=== PATIENT | female | born 1990 | race Caucasian/White ===

== ENCOUNTER 2016-08-04 13:53 | Day surgery (SDC) | payer BC ==
[~2016-08-04] VITALS: Ht 170.2 cm; Wt 117.6 kg
[2016-08-04] VITALS (24 sets, daily range): BP systolic 85–133; BP diastolic 46–91; PULSE 74–97; RESP 12–23; TEMP 97–99.3; O2SAT 91–98; Ht 170.2 cm; Wt 117.6 kg
--- OUTSIDE RECORDS SUMMARY | 2016-08-04 13:58 | XMS REPORT | Summary of Care ---
Author Author Bora Wright Organization Unknown Address [address] [place], [place] [id number] Phone Unavailable Care Team Providers Care Freight Broker Agent Name Role Phone Davin Dixon PP Unavailable Unavailable Unavailable Functional Status Functional Status Health Issues* Name Dates Details Functional status health issues are not documented Status: Cognitive Status Health Issues* Name Dates Details Cognitive status health issues are not documented Status: Problems Name Dates Details Chest pain (786.50, R07.9) Status: Active Memory loss (780.93, R41.3) Status: Active Cervicalgia (723.1, M54.2) Status: Active Cerumen impaction (380.4, H61.20) Status: Active Tonsillar hypertrophy (474.11, J35.1) Status: Active Amenorrhea (626.0, N91.2) Status: Active Pre-procedural examination (V72.84, Z01.818) Status: Active Abnormal liver enzymes (790.5, R74.8) Status: Active 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, 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 Irritable bowel syndrome (564.1, K58.9) Status: Active Abdominal pain, epigastric (789.06, R10.13) Status: Active Lower back pain (724.2, M54.5) Status: Active Rash (782.1, R21) Status: Active Abdominal cramping (789.00, R10.9) Status: Active Rectal bleeding (569.3, K62.5) Status: Active Gastroenteritis (558.9, K52.9) Status: Active Anxiety (300.00, F41.9) Status: Active Acute pharyngitis (462, J02.9) Status: Active Knee pain, right (719.46, M25.561) Status: Active Knee pain (719.46, M25.569) Status: Active Left knee pain (719.46, M25.562) Status: Active 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, 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 Medications Name Dates Details Medication not documented Allergies and Adverse Reactions Name Dates Details Iodine Tincture SWAB Status: Active Sulfa Drugs Status: Active Past Medical History Name Dates Details History of Peptic Ulcer (V12.71) Status: Resolved Procedures Procedure Dates Details History of Appendectomy History of Ovarian Cystectomy History of Cholecystectomy History of Laparos Large Intest Laser Vaporization Endometriotic Tissue History of Duodenoscopy With Biopsy ORTHO KNEE RIGHT Ordered:06-Dec-2014 Immunization Name Dates Details Immunizations not documented Family History Unknown Family Member* Name Dates Details Family history of Diabetes Mellitus (V18.0) Comments: Family History Status: Active Family history of Coronary Arteriosclerosis (V17.49) Comments: Family History Status: Active Family history of Tuberculosis Comments: Family History Status: Active Family history of Alcohol Abuse Comments: Family History Status: Active Family history of Stroke Syndrome (V17.1) Comments: Family History Status: Active Family history of Sick Sinus Syndrome Comments: Family History Status: Active Father* Name Dates Details Family history of cerebrovascular accident (V17.1, Z82.3) Status: Active Social History Name Dates Details Smoking Status* Never smoker Vital Signs Date Test Result Details 06-Dec-2014 09:53 BP Systolic 137 mm[Hg] Status: BP Diastolic 86 mm[Hg] Status: Heart Rate 88 /min Status: Height 67 in Status: 05-Dec-2014 10:11 BP Systolic 124 mm[Hg] Status: BP Diastolic 84 mm[Hg] Status: Temperature 35.9 c Status: Heart Rate 83 /min Status: Weight 248 lb Status: O2 SAT 95 % Status: Results Date Description Value Details 05-Dec-2014 09:50 MRI KNEE RIGHT Comments: Exam Date: 12/05/2014 08: 49Dictation Date: 12/05/2014 09:50 XMR EXT KNEE RIGHT (Better) Plan of Care Planned Observations* Name Dates Details Planned Goals not documented Goal Planned Encounters* Appointment; Provider: Schedule Radiology On 05-Dec-2014 09:00 Instructions * Instructions not documented Encounters Appointment; Davin Vance Encounter Diagnosis: Problem not documented On 03-Jan-2015 08:15 Appointment; Davin Vance Encounter Diagnosis: Problem not documented On 20-Dec-2014 08:45 Appointment; Davin Vance Encounter Diagnosis: Problem not documented On 06-Dec-2014 09:30 Appointment; Davin Dixon Encounter Diagnosis: Problem not documented On 05-Dec-2014 09:45 Appointment; Davin Dixon Encounter Diagnosis: Problem not documented On 26-Nov-2014 15:15 Appointment; Davin Dixon Encounter Diagnosis: Problem not documented On 09:00 Appointment; Davin Dixon Encounter Diagnosis: Problem not documented On 20-Mar-2014 15:00 Appointment; Davin Dixon Encounter Diagnosis: Problem not documented On 27-Feb-2014 10:00 Appointment; Davin Dixon Encounter Diagnosis: Problem not documented On 13-Feb-2014 15:45 Appointment; Davin Dixon Encounter Diagnosis: Problem not documented On 19-Jan-2014 14:00 Appointment; Shayna Mariscal Encounter Diagnosis: Problem not documented On 16-Jan-2014 13:00 Appointment; Eran August Encounter Diagnosis: Problem not documented On 16-Jan-2014 10:00 Appointment; EranAugust Encounter Diagnosis: Problem not documented On 02-Jan-2014 14:45 Appointment; Davin Dixon Encounter Diagnosis: Problem not documented On 30-Oct-2013 13:30 Appointment; Davin Dixon Encounter Diagnosis: Problem not documented On 11-Jul-2013 09:45 Appointment; Davin Dixon Encounter Diagnosis: Problem not documented On 01-May-2013 15:15 Appointment; Arnoldo Contreras Encounter Diagnosis: Problem not documented On 25-Apr-2013 11:00
--- OUTSIDE RECORDS SUMMARY | 2016-08-04 13:58 | XMS REPORT | Summary of Care ---
Author Author Davin Vance M.D. Unknown Address [address] [place], [place] [id number] Phone Unavailable Care Team Providers Care Website Designer Name Role Phone Davin Dixon M.D. Unavailable Unavailable Davin Dixon PP Unavailable Unavailable Unavailable Functional [...] Left knee pain (719.46, M25.562) Status: Active Medications Name Dates Details Hydrocodone-Acetaminophen 5-325 MG Oral Tablet TAKE 1 TABLET EVERY 6 HOURS NEEDED FOR PAIN. Quantity: 30 Davin Dixon M.D.* Started 04-May-2014 Active Allergies and Adverse Reactions Name Dates Details [...] lb Status: O2 SAT 95 % Status: 26-Nov-2014 15:18 BP Systolic 110 mm[Hg] Status: BP Diastolic 80 mm[Hg] Status: Temperature 36.5 c Status: Heart Rate 98 /min Status: Weight 256 lb Status: O2 SAT 97 % Status: Results Date Description Value Details 05-Dec-2014 09:50 MRI KNEE RIGHT Comments: Exam Date: 12/05/2014 08: 49Dictation Date: 12/05/2014 09:50 XMR EXT KNEE RIGHT (Better) Plan of Care Planned Observations* Name Dates Details Planned Goals not documented Goal Planned Encounters* Appointment; Provider: Davin Vance On 03-Jan-2015 08:15 * Appointment; Provider: Schedule Radiology On 05-Dec-2014 09:00 [...] not documented On 16-Jan-2014 13:00 Appointment; Eran Natalie Encounter Diagnosis: Problem not documented On 16-Jan-2014 10:00 Appointment; Natalie Barillas Encounter Diagnosis: Problem not documented On 02-Jan-2014 14:45 Appointment; Davin Dixon Encounter Diagnosis: Problem not documented On 30-Oct-2013 13:30 Appointment; Davin Dixon Encounter Diagnosis: Problem not documented On 11-Jul-2013 09:45 Appointment; Davin Dixon Encounter Diagnosis: Problem not documented On 01-May-2013 15:15 Appointment; Arnoldo Contreras Encounter Diagnosis: Problem not documented On 25-Apr-2013 11:00
--- OUTSIDE RECORDS SUMMARY | 2016-08-04 13:58 | XMS REPORT | Summary of Care ---
Author Author Neel Peters, [facility] Unknown Address [address] [place] [address] Phone Unavailable Care Team Providers Care Wild Life Photographer Name Role Phone Davin Dixon PP Unavailable [...] Acute pharyngitis (462, J02.9) Status: Active Knee pain (719.46, M25.569) Status: Active Left knee pain (719.46, M25.562) Status: Active Chondromalacia of left knee (717.7, M94.262) Status: Active Closed bimalleolar fracture, right, with routine healing, subsequent encounter (V54.16, S82.841D) Status: Active Right knee pain (719.46, M25.561) Status: Active Pre-operative exam (V72.84, Z01.818) Status: Active Knee pain, right (719.46, M25.561) Status: Active 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, 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 Post-op pain (338.18, G89.18) Status: Active Status post arthroscopy of right knee (V45.89, Z98.89) Status: Active History of Appendectomy Status: Resolved Family history of Diabetes Mellitus (V18.0) Status: Active Family history of Alcohol Abuse Status: Active Family history of cerebrovascular accident (V17.1, Z82.3) Status: Active Medications Name Dates Details Medication not documented Allergies and Adverse Reactions Name Dates Details Iodine Tincture SWAB Status: Active Sulfa Drugs Status: Active Past Medical History Name Dates Details History of Muscle discomfort (729.1, M79.1) Status: Resolved History of Peptic Ulcer (V12.71) Status: Resolved Procedures Procedure Dates Details History of Ovarian Cystectomy History of Cholecystectomy History of Laparos Large Intest Laser Vaporization Endometriotic Tissue History of Duodenoscopy With Biopsy History of Appendectomy ORTHO SPINE LUMBAR (5 VIEWS) Ordered:27-Feb-2015 Immunization Name Dates Details Immunizations not documented Family History Unknown Family Member* Name Dates Details Family history of Coronary Arteriosclerosis (V17.49) Comments: Family History Status: Active Family history of Tuberculosis Comments: Family History Status: Active Family history of Stroke Syndrome (V17.1) Comments: Family History Status: Active Family history of Sick Sinus Syndrome Comments: Family History Status: Active Family history of Diabetes Mellitus (V18.0) Comments: Family History Status: Active Family history of Alcohol Abuse Comments: Family History Status: Active Father* Name Dates Details Family history of cerebrovascular accident (V17.1, Z82.3) Status: Active Social History Smoking Status* Unknown if ever smoked Vital Signs Date Test Result Details No Known Vitals to report Results Date Description Value Details Results not documented Plan of Care Planned Observations* Name Dates Details Planned Goals not documented Goal Planned Encounters* Appointment; Provider: Noelle Amanda On 08-Mar-2015 08:00 * Appointment; Provider: Davin Vance On 14-Jan-2015 08:00 * Appointment; Provider: [facility] On 05-Dec-2014 09:00 Instructions * Instructions not documented Encounters Appointment; Harinder Shaikh Encounter Diagnosis: Problem not documented On 01-Mar-2015 09:15 Appointment; Erfain Cantrell Encounter Diagnosis: Problem not documented On 01-Mar-2015 08:30 Appointment; Davin Vance Encounter Diagnosis: Problem not documented On 24-Jan-2015 10:30 Appointment; Efrain Rojo Encounter Diagnosis: Problem not documented On 11-Jan-2015 14:45 Appointment; Davin Vance Encounter Diagnosis: Problem not documented On 10-Jan-2015 08:45 Appointment; Davin Vance Encounter Diagnosis: Problem not documented On 03-Jan-2015 08:15 Appointment; Davin Vance Encounter Diagnosis: Problem not documented On 20-Dec-2014 08:45 Appointment; Davin Vance Encounter Diagnosis: Problem not documented On 06-Dec-2014 09:30 Appointment; Davin Dixon Encounter Diagnosis: Problem not documented On 05-Dec-2014 09:45 Appointment; Davin Dixon Encounter Diagnosis: Problem not documented On 26-Nov-2014 15:15 Appointment; Davin iDxon Encounter Diagnosis: Problem not documented On 09:00 Appointment; Davin Dixon Encounter Diagnosis: Problem not documented On 20-Mar-2014 15:00 Appointment; Davin Dixon Encounter Diagnosis: Problem not documented On 27-Feb-2014 10:00 Appointment; Davin Dixon Encounter Diagnosis: Problem not documented On 13-Feb-2014 15:45 Appointment; Davin Dixon Encounter Diagnosis: Problem not documented On 19-Jan-2014 14:00 Appointment; Shayna Mariscal Encounter Diagnosis: Problem not documented On 16-Jan-2014 13:00 Appointment; EranAugust Encounter Diagnosis: Problem not documented On 16-Jan-2014 10:00 Appointment; Eran August Encounter Diagnosis: Problem not documented On 02-Jan-2014 14:45 Appointment; Davin Dixon Encounter Diagnosis: Problem not documented On 30-Oct-2013 13:30 Appointment; Davin Dixon Encounter Diagnosis: Problem not documented On 11-Jul-2013 09:45 Appointment; Davin Dixon Encounter Diagnosis: Problem not documented On 01-May-2013 15:15 Appointment; Arnoldo Contreras Encounter Diagnosis: Problem not documented On 25-Apr-2013 11:00
--- OUTSIDE RECORDS SUMMARY | 2016-08-04 13:58 | XMS REPORT | Summary of Care ---
Author Author Davin Dixon M.D. Organization Unknown Address [address] [place], [place] [id number] Phone Unavailable Care Team Providers Care Osteologist Name Role Phone Davin Dixon M.D. Unavailable [...] Gastroenteritis (558.9, K52.9) Status: Active Anxiety (300.00, F41.1) Status: Active Acute pharyngitis (462, J02.9) Status: Active Medications Name Dates Details Hydrocodone-Acetaminophen 5-325 MG Oral Tablet TAKE 1 TABLET EVERY 6 HOURS NEEDED FOR PAIN. Quantity: 30 Davin Dixon M.D.* Started 04-May-2014 ActiveAmoxicillin 500 MG Oral Tablet TAKE 1 TABLET 3 TIMES DAILY. * Quantity: 21 Refills: 0 Davin Dixon M.D.* Started Active Allergies and Adverse Reactions Name Dates Details Iodine Tincture SWAB Status: Active Sulfa Drugs Status: Active Past Medical History Name Dates Details History of Peptic Ulcer (V12.71) Status: Resolved Procedures Procedure Dates Details History of Appendectomy History of Ovarian Cystectomy History of Cholecystectomy History of Laparos Large Intest Laser Vaporization Endometriotic Tissue History of Duodenoscopy With Biopsy Procedures not documented Immunization Name Dates Details Immunizations not documented [...] Sinus Syndrome Comments: Family History Status: Active Social History Name Dates Details Smoking Status* Never smoker Vital Signs Date Test Result Details No Known Vitals to report Results Date Description Value Details Results not documented Plan of Care Planned Observations* Name Dates Details Planned Goals not documented Goal Instructions * Instructions not documented Encounters Appointment; Davin Dixon Encounter Diagnosis: Problem not [...] not documented On 01-May-2013 15:15 Appointment; Arnoldo Contrersa Encounter Diagnosis: Problem not documented On 25-Apr-2013 11:00
--- OUTSIDE RECORDS SUMMARY | 2016-08-04 13:58 | XMS REPORT | Summary of Care ---
Author Author Davin Maradiaga M.D. Organization Unknown Address [address], [place] [address] Phone Unavailable Care Team Providers Care Backup Operator Name Role Phone Davin Dixon M.D. 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, 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 History of Appendectomy Status: Resolved Family history of Diabetes Mellitus (V18.0) Status: Active Family history of Alcohol Abuse Status: Active Family history of cerebrovascular accident (V17.1, Z82.3) Status: Active Lower back pain (724.2, M54.5) Status: Active History of drug dependence/abuse (304.63, F19.21) Status: Active Suppressed , with delivery (676.51, O92.5) Status: Active Anxiety (300.00, F41.9) Status: Active Depression (311, F32.9) Status: Active Headache (784.0, R51) Status: Active Left knee pain (719.46, M25.562) Status: Active Iliotibial band tendinitis of left side (728.89, M76.32) Status: Active Migraine without aura, intractable (346.11, G43.019) Status: Active Medications Name Dates Details Multi-Vitamins Oral Tablet TAKE 1 TABLET DAILY. Davin Dixon M.D.* Started 12-Apr-2015 ActiveSertraline HCl - 50 MG Oral Tablet TAKE 1 TABLET DAILY. * Quantity: 30 Refills: 3 Davin Dixon M.D.* Started 12-Apr-2015 ActiveClonazePAM 0.5 MG Oral Tablet TAKE 1 TABLET Bedtime PRN * Quantity: 30 Refills: 0 Davin Dixon M.D.* Started 12-Apr-2015 Active Allergies and Adverse Reactions Name Dates Details Iodine Tincture SWAB Status: Active Sulfa Drugs Status: Active Past Medical History Name Dates Details History of back problems Status: Resolved History of dizziness (V13.89, Z87.898) Status: Resolved History of hearing loss (V12.49, Z86.69) Status: Resolved History of Muscle discomfort (729.1, M79.1) Status: Resolved History of Peptic Ulcer (V12.71) Status: Resolved Procedures Procedure Dates Details History of Ovarian Cystectomy History of Cholecystectomy History of Laparos Large Intest Laser Vaporization Endometriotic Tissue History of Duodenoscopy With Biopsy History of Appendectomy History of Tonsillectomy History of Gallbladder Surgery History of Knee Surgery ORTHO KNEE LEFT Ordered:19-Feb-2016 Immunization Name Dates Details Immunizations not documented [...] of cerebrovascular accident (V17.1, Z82.3) Status: Active Brother* Name Dates Details Family history of suicide (V17.0, Z81.8) Status: Active Social History Name Dates Details Smoking Status* Never smoker Vital Signs Date Test Result Details 28-May-2015 09:55 BP Systolic 124 mm[Hg] Status: BP Diastolic 80 mm[Hg] Status: Heart Rate 66 /min Status: Weight 249 lb Status: Body Mass Index Calculated 39 kg/m2 Status: Body Surface Area Calculated 2.22 m2 Status: 17-May-2015 08:47 BP Systolic 129 mm[Hg] Status: BP Diastolic 86 mm[Hg] Status: Heart Rate 81 /min Status: Respiration Rate 16 /min Status: 14-May-2015 10:31 BP Systolic 122 mm[Hg] Status: BP Diastolic 80 mm[Hg] Status: Temperature 36.1 c Status: Heart Rate 81 /min Status: Weight 248 lb Status: O2 SAT 97 % Status: Body Mass Index Calculated 38.84 kg/m2 Status: Body Surface Area Calculated 2.22 m2 Status: Results Date Description Value Details Results not documented Plan of Care Planned Observations* Name Dates Details Planned Goals not documented Goal Planned Encounters* Appointment; Provider: Davin Maradiaga On 14-Aug-2015 08:30 * Appointment; Provider: Davin Dixon On 12-Aug-2015 10:45 * Appointment; Provider: Davin Vance On 30-May-2015 08:00 * Appointment; Provider: Davin Vance On 14-Jan-2015 08:00 * Appointment; Provider: Schedule Radiology On 05-Dec-2014 09:00 Instructions * Instructions not documented Encounters Appointment; Davin Maradiaga Encounter Diagnosis: Problem not documented On 28-May-2015 10:00 Appointment; Davin Vance Encounter Diagnosis: Problem not documented On 17-May-2015 08:30 Appointment; Davin Dixon Encounter Diagnosis: Problem not documented On 14-May-2015 10:30 Appointment; Davin Dixon Encounter Diagnosis: Problem not documented On 12-Apr-2015 15:00 Appointment; Harinder Shaikh Encounter Diagnosis: Problem not documented On 01-Mar-2015 09:15 Appointment; Efrain Cantrell Encounter Diagnosis: Problem not documented On [...]
--- OUTSIDE RECORDS SUMMARY | 2016-08-04 13:58 | XMS REPORT | Summary of Care ---
Author Author Davin Dixon M.D. Organization Unknown Address [address] [place], [place] [id number] Phone Unavailable Care Team Providers Care Financial Investigator Name Role Phone Davin Dixon M.D. Unavailable [...] Knee pain, right (719.46, M25.561) Status: Active Medications Name Dates Details Hydrocodone-Acetaminophen [...] smoker Vital Signs Date Test Result Details 05-Dec-2014 10:11 BP Systolic 124 mm[Hg] Status: [...] not documented On 16-Jan-2014 10:00 Appointment; Eran Natalie Encounter Diagnosis: Problem not documented On 02-Jan-2014 14:45 Appointment; Davin Dixon Encounter Diagnosis: Problem not documented On 30-Oct-2013 13:30 Appointment; Davin Dixon Encounter Diagnosis: Problem not documented On 11-Jul-2013 09:45 Appointment; Davin Dixon Encounter Diagnosis: Problem not documented On 01-May-2013 15:15 Appointment; Arnoldo Contreras Encounter Diagnosis: Problem not documented On 25-Apr-2013 11:00
--- OUTSIDE RECORDS SUMMARY | 2016-08-04 13:58 | XMS REPORT | Summary of Care ---
Author Author Davin Dixon M.D. Organization Unknown Address [address] [place], [place] [id number] Phone Unavailable Care Team Providers Care Legal Billing Clerk Name Role Phone Davin Dixon M.D. Unavailable [...] J02.9) Status: Active Medications Name Dates Details [place] 5-325 MG Oral Tablet TAKE 1 TABLET [...] smoker Vital Signs Date Test Result Details 09:24 BP Systolic 118 mm[Hg] Status: BP Diastolic 80 mm[Hg] Status: Heart Rate 102 /min Status: Temperature 36.4 c Status: Weight 259 lb Status: O2 SAT 98 % Status: Results Date Description Value Details Results [...] Diagnosis: Problem not documented On 25-Apr-2013 11:00 Appointment; Arnoldo Contreras Encounter Diagnosis: Problem not documented On 08:45 Appointment; Arnoldo Contreras Encounter Diagnosis: Problem not documented On 08:15 Appointment; Davin Dixon Encounter Diagnosis: Problem not documented On 10:30
--- OUTSIDE RECORDS SUMMARY | 2016-08-04 13:58 | XMS REPORT | Summary of Care ---
Author Author Davin Dixon M.D. Organization Unknown Address [address] [place], [place] [id number] Phone Unavailable Care Team Providers Care Area Field Manager Name Role Phone Davin Dixon M.D. Unavailable [...] Status: Active Gastroenteritis (558.9, K52.9) Status: Active Medications Name Dates Details TraMADol HCl - 50 MG Oral Tablet TAKE 1 TABLET EVERY 6 HOURS NEEDED FOR PAIN. Quantity: 40 Davin Dixon M.D.* Started 05-Mar-2014 ActiveAzithromycin 250 MG Oral Tablet TAKE 2 TABLETS ON DAY 1 THEN TAKE 1 TABLET A DAY FOR 4 DAYS. * Quantity: 1 Refills: 0 Davin Dixon M.D.* Started 20-Mar-2014 Active Allergies and Adverse Reactions Name Dates Details Iodine Tincture SWAB Status: Active Sulfa Drugs Status: Active Past Medical History Name Dates Details History of Peptic Ulcer (V12.71) Status: Resolved Procedures Procedure Dates Details History of Appendectomy History of Ovarian Cystectomy History of Cholecystectomy History of Laparos Large Intest Laser Vaporization Endometriotic Tissue History of Duodenoscopy With Biopsy STOOL CULTURE 5015 Ordered:20-Mar-2014 Immunization Name Dates Details Immunizations not documented [...] smoker Vital Signs Date Test Result Details 20-Mar-2014 15:24 BP Systolic 128 mm[Hg] Status: BP Diastolic 78 mm[Hg] Status: Heart Rate 96 /min Status: Temperature 35.5 c Status: O2 SAT 97 % Status: Results Date Description Value Details 20-Mar-2014 15:14 CBC w/ Auto Diff 7150 WBC 10.1 K/uL (Better) Range: 4.5-11.0 RBC 4.95 mil/uL (Better) Range: 3.60-5.00 HGB 14.7 g/dL (Better) Range: 12.0-16.0 HCT 42.5 % (Better) Range: 36.0-48.0 MCV 85.9 fL (Better) Range: 80.0-99.0 MCH 29.6 pg (Better) Range: 27.3-32.5 MCHC 34.5 % (Better) Range: 32.0-36.0 RDW 13.4 % (Better) Range: 11.6-14.8 PLATELETS 302 K/uL (Better) Range: 150-400 MPV 6.8 fL (Better) Range: 6.0-11.0 %NEUTRO 62.9 % (Better) Range: 37.0-80.0 %LYMPHS 27.8 % (Better) Range: 13.0-50.0 %MONO 4.3 % (Better) Range: 0.0-12.0 %EOS 2.8 % (Better) Range: 0.0-7.0 %BASO 0.9 % (Better) Range: 0.0-2.5 %PEDRO 1.3 % (Better) Range: 0.0-5.0 NEUTRO 6.4 K/uL (Better) Range: 2.0-6.9 LYMPHS 2.8 K/uL (Better) Range: 0.6-3.4 MONOS 0.4 K/uL (Better) Range: 0.0-0.9 EOS 0.3 K/uL (Better) Range: 0.0-0.7 BASO 0.1 K/uL (Better) Range: 0.0-0.2 15:32 BASIC METABOLIC PROFILE 1210 SODIUM 139 mmol/L (Better) Range: 133-144 POTASSIUM 3.9 mmol/L (Better) Range: 3.5-5.1 CHLORIDE 102 mmol/L (Better) Range: 98-110 CARBON DIOXIDE 25.8 mmol/L (Better) Range: 23.0-33.0 ANION GAP 11 mmol/L (Better) Range: 6-16 BUN 9 mg/dL (Better) Range: 7-18 CREATININE, SERUM 0.91 mg/dL (Better) Range: 0.43-1.13 EST GFR, >60 ml/min (Better) Range: >60 EST GFR, NON-AFR NAMIBIAN >60 ml/min (Better) Range: >60 Comments: EST GFR is reported in ml/min per 1.73 m2 of body surface area. For -[place], please multiple result by 1.2.----- BUN:CREATININE RATIO 10 (Better) GLUCOSE 102 mg/dL (Above high threshold) Range: 70-100 CALCIUM 8.9 mg/dL (Better) Range: 8.5-10.1 Plan of Care Planned Observations* Name Dates [...] Encounter Diagnosis: Problem not documented On 10:30 Appointment; Davin Dixon Encounter Diagnosis: Problem not documented On 01-Aug-2012 16:15 Appointment; Davin Dixon Encounter Diagnosis: Problem not documented On 20-Jul-2012 13:30 Appointment; Davin Dixon Encounter Diagnosis: Problem not documented On 14-Jun-2012 14:45
--- OUTSIDE RECORDS SUMMARY | 2016-08-04 13:58 | XMS REPORT | Summary of Care ---
Author Author Davin Dixon M.D. Organization Unknown Address [address] [place], [place] [id number] Phone Unavailable Care Team Providers Care Molasses And Caramel Operator Name Role Phone Davin Dixon M.D. [...] ml/min (Better) Range: >60 EST GFR, NON-AFR OMANI >60 ml/min (Better) Range: >60 Comments: EST GFR is reported in ml/min per 1.73 m2 of body surface area. For -[place], please multiple result by 1.2.----- BUN:CREATININE RATIO [...]
--- OUTSIDE RECORDS SUMMARY | 2016-08-04 13:59 | XMS REPORT | Summary of Care ---
Author Author Eran Peters, Natalie J Organization Unknown Address [address], [place] [id number] Phone Unavailable Care Team Providers Care Health Management Consultant Name Role Phone Davin Dixon PP Unavailable Unavailable Unavailable Functional Status Functional Status Health Issues* Name Dates Details Functional status health issues are not documented Status: Cognitive Status Health Issues* Name Dates Details Cognitive status health issues are not documented Status: Problems Name Dates Details Lower back pain (724.2, M54.5) Status: Active Chest pain (786.50, R07.9) Status: Active Memory loss (780.93, R41.3) Status: Active Cervicalgia (723.1, M54.2) Status: Active Cerumen impaction (380.4, H61.20) Status: Active Tonsillar hypertrophy (474.11, J35.1) Status: Active Amenorrhea (626.0, N91.2) Status: Active 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, 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 Abdominal pain, epigastric (789.06, R10.13) Status: Active Pre-procedural examination (V72.84, Z01.818) Status: Active Abnormal liver enzymes (790.5, R74.8) Status: Active Medications Name Dates Details Complete 14-0.4 MG Oral Tablet * Started 01-May-2013 Active Allergies and Adverse Reactions Name Dates Details Iodine Tincture SWAB Status: Active Sulfa Drugs Status: Active Past Medical History Name Dates Details History of Peptic Ulcer (V12.71) Status: Resolved Procedures Procedure Dates Details History of Appendectomy History of Ovarian Cystectomy History of Cholecystectomy History of Laparos Large Intest Laser Vaporization Endometriotic Tissue SERUM TEST 8020 Ordered:02-Jan-2014 ULTRASOUND ABDOMEN COMPLETE Ordered:03-Jan-2014 Immunization Name Dates Details Immunizations not documented [...] smoker Vital Signs Date Test Result Details 02-Jan-2014 15:14 BP Systolic 127 mm[Hg] Status: BP Diastolic 85 mm[Hg] Status: Heart Rate 80 /min Status: Weight 245 lb Status: Results Date Description Value Details 02-Jan-2014 10:09 SERUM TEST 8020 SERUM TEST Negative (Better) Range: Negative Comments: Internal Control: Acceptable----- 16:37 AMYLASE 1250 AMYLASE 75 U/L (Better) Range: 25-115 16:37 C REACTIVE PROTEIN, CRP 2030 C REACTIVE PROTEIN 1.1 mg/dL (Above high threshold) Range: 0.0-0.9 16:37 Comprehensive Metabolic Panel 1212 SODIUM 140 mmol/L (Better) Range: 133-144 POTASSIUM 3.9 mmol/L (Better) Range: 3.5-5.1 CHLORIDE 104 mmol/L (Better) Range: 98-110 CARBON DIOXIDE 30.7 mmol/L (Better) Range: 23.0-33.0 ANION GAP 5 mmol/L (Below low threshold) Range: 6-16 BUN 12 mg/dL (Better) Range: 7-18 CREATININE, SERUM 0.90 mg/dL (Better) Range: 0.43-1.13 BUN:CREATININE RATIO 13 (Better) EST GFR, >60 ml/min (Better) Range: >60 EST GFR, NON-AFR TRINIDADIAN >60 ml/min (Better) Range: >60 Comments: EST GFR is reported in ml/min per 1.73 m2 of body surface area. For -Indonesian, please multiple result by 1.2.----- GLUCOSE 89 mg/dL (Better) Range: 70-100 ALK PHOSPHATASE 132 U/L (Above high threshold) Range: 46-116 Comments: Please Note: New Reference Range effective 2013.----- TOTAL BILIRUBIN 0.30 mg/dL (Better) Range: 0.20-1.00 AST 14 U/L (Better) Range: 8-35 ALT 21 U/L (Better) Range: 12-78 ALBUMIN 4.0 g/dL (Better) Range: 3.4-5.0 TOTAL PROTEIN 7.9 g/dL (Better) Range: 6.4-8.2 A/G RATIO 1.0 units (Better) Range: 1.0-1.8 CALCIUM 9.8 mg/dL (Better) Range: 8.5-10.1 16:37 Lipase 1275 LIPASE 210 U/L (Better) Range: 73-393 16:53 H. Pylori IgG, Ab 2024 H PYLORI ANTIBODY Negative (Better) Range: Negative 06-Jan-2014 13:11 Celiac Disease Comprehensive [id number] Comments: TESTING PERFORMED AT: [BN] [facility], [address] [place] [address], [address], PHONE: [phone], PRESCHOOL TEACHER ASSISTANT: HOWIE ASIF MDTESTING PERFORMED AT: [DA] [facility], [address] [place] [address], [place], [address], PHONE: [phone], PRESCHOOL TEACHER ASSISTANT: KIRIT FUNEZ MD DEAMIDATED GLIADIN ABS, IGA 1 UNITS (Better) Range: 0-19 Comments: NEGATIVE 0 - 19 WEAK POSITIVE 20 - 30 MODERATE TO STRONG POSITIVE >30----- DEAMIDATED GLIADIN ABS, IGG 2 UNITS (Better) Range: 0-19 Comments: NEGATIVE 0 - 19 WEAK POSITIVE 20 - 30 MODERATE TO STRONG POSITIVE >30----- T-TRANSGLUTAMINASE (TTG) IGA <2 U/ML (Better) Range: 0-3 Comments: NEGATIVE 0 - 3 WEAK POSITIVE 4 - 10 POSITIVE >10 TISSUE TRANSGLUTAMINASE (TTG) HAS BEEN IDENTIFIED THE ENDOMYSIAL ANTIGEN. STUDIES HAVE DEMONSTR- ATED THAT ENDOMYSIAL IGA ANTIBODIES HAVE OVER 99% SPECIFICITY FOR GLUTEN SENSITIVE ENTEROPATHY.----- T-TRANSGLUTAMINASE (TTG) IGG 5 U/ML (Better) Range: 0-5 Comments: NEGATIVE 0 - 5 WEAK POSITIVE 6 - 9 POSITIVE >9----- ENDOMYSIAL ANTIBODY IGA NEGATIVE (Better) Range: NEGATIVE IMMUNOGLOBULIN A, QN, SERUM 63 MG/DL (Below low threshold) Range: 91-414 Plan of Care Planned Observations* Name Dates Details Planned Goals not documented Goal Planned Encounters* Appointment; Provider: Natalie Barillas On 16-Jan-2014 10:00 Instructions * Instructions not documented Encounters Appointment; EranAugust Encounter Diagnosis: Problem not documented On 02-Jan-2014 14:45 Appointment; aDvin Dixon Encounter Diagnosis: Problem not documented On [...] Diagnosis: Problem not documented On 14-Jun-2012 14:45 Appointment; Howie Melendez Encounter Diagnosis: Problem not documented On 04-Apr-2012 11:45 Appointment; Howie Melendez Encounter Diagnosis: Problem not documented On 05-Feb-2012 13:45
--- OUTSIDE RECORDS SUMMARY | 2016-08-04 13:59 | XMS REPORT | Referral Summary ---
Author Author [facility] Organization [facility] Address Unknown Phone Unavailable Care Team Providers Care Hvac Manager Name Role Phone No PCP, Pt States Primary Care Physician [phone] Encounter VC Date(s): 03/01/16 - 03/01/16 [facility] [address] [place] [address] Discharge Diagnosis: Wound due to squirrel bite Discharge Disposition: 01-Home or Self Care Attending Physician: Brennan Moreno DO Admitting Physician: Brennan Moreno DO Vital Signs Most recent to 1 oldest [Reference Range]: Temperature Oral 37.1 degC [35.8-37.3 degC] (03/01/16 2:26 PM) Peripheral Pulse 80 bpm Rate [60-100 bpm] (03/01/16 2:26 PM) Respiratory Rate 18 br/min [14-20 br/min] (03/01/16 2:26 PM) Blood Pressure 109/77 mmHg [90-140/60-90 mmHg] (03/01/16 2:26 PM) SpO2 97 % (03/01/16 2:26 PM) Problem List Condition Effective Dates Status Health Status Informant Anxiety(Confirmed) Active patient Depression, Active patient major(Confirmed) Allergies, Adverse Reactions, Alerts Substance Reaction Severity Status sulfa drugs Active Medications Augmentin 875 mg-125 mg oral tablet 1 tabs, Oral, q12hr, X 10 days, # 20 tabs, 0 Refill(s) Start Date: 03/01/16 Stop Date: 03/11/16 Status: Ordered clonazePAM Oral, TID, 0 Refill(s) Start Date: 03/01/16 Status: Ordered Effexor XR Oral, Daily, 0 Refill(s) Start Date: 03/01/16 Status: Ordered hydrOXYzine 0 Refill(s) Start Date: 03/01/16 Status: Ordered traZODone Oral, 0 Refill(s) Start Date: 03/01/16 Status: Ordered Results No data available for this section Immunizations Vaccine Date Refusal Reason tetanus-diphth toxoids (Td) adult/adol 03/01/16 Procedures Procedure Date Related Diagnosis Body Site Appendicectomy Cholecystectomy Colonoscopy Knee joint operation Tonsillectomy Social History Social History Type Response Smoking Status Current every day smoker; Type: Cigars Assessment and Plan No data available for this section
--- OUTSIDE RECORDS SUMMARY | 2016-08-04 13:59 | XMS REPORT | Summary of Care ---
Author Author Davin Dixon M.D. Organization Unknown Address [address] [place], [place] [id number] Phone Unavailable Care Team Providers Care Blanket Binder Name Role Phone Davin Dixon M.D. Unavailable [...] ml/min (Better) Range: >60 EST GFR, NON-AFR BURUNDIAN >60 ml/min (Better) Range: >60 Comments: EST GFR is reported in ml/min per 1.73 m2 of body surface area. For -Grenadian, please multiple result by 1.2.----- BUN:CREATININE RATIO [...] Problem not documented On 08:45 Appointment; Arnoldo Contrreas Encounter Diagnosis: Problem not documented On 08:15 Appointment; Davin Dixon Encounter Diagnosis: Problem not documented On 10:30 Appointment; Davin Dixon Encounter Diagnosis: Problem not documented On 01-Aug-2012 16:15 Appointment; Davin Dixon Encounter Diagnosis: Problem not documented On 20-Jul-2012 13:30 Appointment; Davin Dixon Encounter Diagnosis: Problem not documented On 14-Jun-2012 14:45
--- OUTSIDE RECORDS SUMMARY | 2016-08-04 13:59 | XMS REPORT ---
Author Author Davin Dixon Organization Unknown Address [address] [place], [place] [id number] Phone Care Team Providers Care Calibration Specialist Name Role Phone DavinDestiny PP Unavailable Unavailable Reason for Referral No Reason for Referral was given. History of Present Illness No HPI available. Problems * Normal Routine History And Physical Adult (V70.0); (Active) * Chest Pain Or Discomfort (786.50); (Active) * Lower Back Pain (724.2); (Active) * Cervicalgia (723.1); (Active) * Memory Lapses Or Loss (780.93); (Active) * Gluten Enteropathy (579.0); (Active) Medication * Antipyrine-Benzocaine 54-14 MG/ML Otic Solution; Instill five drops into each ear every 3 hours as needed.; Start Date: 06/14/2012; End Date: ( Active) Allergies and Adverse Reactions * Sulfa Drugs (Active) * Iodine Tincture SWAB (Active) Past Medical History * History of Peptic Ulcer (V12.71); (Resolved) Procedures Procedure Procedure Date Date Completed Status Appendectomy - - Active Ovarian Cystectomy - - Active Cholecystectomy - - Active Laparos Large Intest Laser Vaporization Endometriotic Tissue - - Active Family History * Family history of Diabetes Mellitus (V18.0); (Active) * Family history of Coronary Arteriosclerosis (V17.49); (Active) * Family history of Tuberculosis (Active) * Family history of Alcohol Abuse (Active) * Family history of Stroke Syndrome (V17.1); (Active) * Family history of Sick Sinus Syndrome (Active) Social History * Never A Smoker (Active) * Marital History - Currently (Active) Vital Signs Date Description Test Result 14 Jun 2012 03:10 PM recorded by: Kamille Salazar Height 67 in Weight 222 lb Body Mass Index Calculated 34.84 Body Surface Area Calculated 2.11 BP Systolic 132 mm[Hg] BP Diastolic 80 mm[Hg] Heart Rate 93 /min O2 SAT 97 % Advance Directives * No Advance Directives available. Encounters * Appointment 06/14/2012
--- OUTSIDE RECORDS SUMMARY | 2016-08-04 13:59 | XMS REPORT | Summary of Care ---
Author Author Davin Dixon M.D. Organization Unknown Address [address] [place], [place] [address] Phone Unavailable Care Team Providers Care Paper Counter Name Role Phone Davin Dixon M.D. Unavailable [...] K52.9) Status: Active Medications Name Dates Details Azithromycin 250 MG Oral Tablet TAKE 2 TABLETS ON DAY 1 THEN TAKE 1 TABLET A DAY FOR 4 DAYS. Quantity: 1 Davin Dixon M.D.* Started 20-Mar-2014 ActiveTraMADol HCl - 50 MG Oral Tablet TAKE 1 TABLET EVERY 6 HOURS NEEDED FOR PAIN. * Quantity: 40 Refills: 0 Davin Dixon M.D.* Started 05-Mar-2014 Active Allergies and Adverse Reactions Name Dates [...] ml/min (Better) Range: >60 EST GFR, NON-AFR [place] >60 ml/min (Better) Range: >60 Comments: EST GFR is reported in ml/min per 1.73 m2 of body surface area. For -Chadian, please multiple result by 1.2.----- BUN:CREATININE RATIO [...]
--- OUTSIDE RECORDS SUMMARY | 2016-08-04 13:59 | XMS REPORT ---
Author Author GENERATED, SYSTEM Organization Unknown Address Unknown Phone Unavailable Care Team Providers Care Computer Technology Instructor Name Role Phone MD FRANKIE, [facility] [phone] Reason For Visit Chief Complaint PAINFUL URINATION, ABDOMINAL PAIN Social History Functional Status Vital Signs Results Urinalysis from 06/23/2015 1:30 PM*URINE COLOR DK YELLOW (STRAW/YELL/DK YELL ) *URINE APPEARANCE CLOUDY A (CLEAR ) URINE PH 5.5 (5.0-8.0 ) URINE SPECIFIC GRAVITY >1.030 (<=1.005->=1.030 ) *URINE GLUCOSE NEGATIVE MG/DL (NEGATIVE MG/DL) *URINE BILIRUBIN NEGATIVE (NEGATIVE ) *URINE KETONES NEGATIVE MG/DL (NEGATIVE MG/DL) *URINE BLOOD LARGE A (NEGATIVE ) *URINE PROTEIN 100 MG/DL A (NEGATIVE MG/DL) *URINE UROBILINOGEN 0.2 EU/DL (0.2-1.0 EU/DL) *URINE NITRITES POSITIVE A (NEGATIVE ) *URINE LEUKOCYTES TRACE A (NEGATIVE ) UR NEGATIVE (NEGATIVE ) *MICROSCOPIC EXAM PERFORMED PERFORMED *WBC URINE 10-25 /HPF A (0-5 /HPF) *RBC URINE 25-50 /HPF A (0-1 /HPF) *SQUAMOUS EP. CELLS MODERATE /LPF A (NEG-FEW /LPF) *TRANSITIONAL EP. CELLS FEW /LPF (NEG-FEW /LPF) *MUCOUS THREADS MODERATE /LPF A (NEGATIVE /LPF) *BACTERIA MANY /HPF A (NEGATIVE /HPF) *CALCIUM OXAL. FILIPE. FEW /HPF A (NEGATIVE /HPF) Microbiology from 06/23/2015 1:30 PM* CULTURE URINE (Preliminary Result) Specimen Number: [id number] Sample Collection Date/Time: 06/23/2015 1:30 PM Specimen Source: Urine Clean Catch CULTURE URINE: Gram-negative bacillus >100,000 cfu/ml ID and Susceptibility to follow Problems Encounter Diagnosis No relevant problems exist. Additional Problems * Fall Risk Comment:Problem resolved by Soarian Workflow upon Discharge, Status: Resolved. Encounters Encounter Diagnosis No relevant problems exist. Plan of Care Procedures * Completed Arthroscopy of Knee, Right, by MD BERNARDO LEVI, on 01/14/2015 11: 26 AM * Completed Procedure Code: 23516 Procedure Name: not valued, on 01/14/2015 12: 00 AM Immunizations No immunizations administered or ordered. Hospital Course Hospital Discharge Instructions Allergies, Adverse Reactions, Alerts * Contrast causes Topical Iodine is the problem. * iodine causes Hives. * Sulfa (Sulfonamide Antibiotics) causes Hives. * Latex Allergy has not been assessed. * IV Contrast Allergy has not been assessed. * No Known Food Allergies. Medication Medication reconciliation has not been performed.
--- OUTSIDE RECORDS SUMMARY | 2016-08-04 13:59 | XMS REPORT | Summary of Care ---
Author Davin Ray M.D. 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 Quantity: 45 Davin Vance M.D.* Started 15-Jan-2015 Active Allergies and Adverse Reactions Name Dates [...] smoked Vital Signs Date Test Result Details 11-Jan-2015 14:45 BP Systolic 122 mm[Hg] Status: BP Diastolic 70 mm[Hg] Status: Heart Rate 88 /min Status: Height 67 in Status: Weight 243 lb Status: Body Mass Index Calculated 38.06 kg/m2 Status: Body Surface Area Calculated 2.2 m2 Status: Results Date Description Value Details 10-Jan-2015 15:44 ECG/ EKG Preop Electro CardioGram (Better) 16:08 PROTIME PANEL 7000 PROTIME 12.3 secs (Better) Range: 12.0-14.9 INR 0.92 (Better) 16:10 CBC w/ Auto Diff 7150 Comments: DOS 01/14/15 Dr. Vance PENDING SALE TO [facility] WBC 10.2 K/uL (Better) Range: 4.5-11.0 RBC 5.05 mil/uL (Above high threshold) Range: 3.60-5.00 HGB 14.3 g/dL (Better) Range: 12.0-16.0 HCT 42.6 % (Better) Range: 36.0-48.0 MCV 84.3 fL (Better) Range: 80.0-99.0 MCH 28.4 pg (Better) Range: 27.3-32.5 MCHC 33.6 % (Better) Range: 32.0-36.0 RDW 14.2 % (Better) Range: 11.6-14.8 PLATELETS 311 K/uL (Better) Range: 150-400 MPV 7.2 fL (Better) Range: 6.0-11.0 %NEUTRO 54.8 % (Better) Range: 37.0-80.0 %LYMPHS 36.7 % (Better) Range: 13.0-50.0 %MONO 3.3 % (Better) Range: 0.0-12.0 %EOS 2.8 % (Better) Range: 0.0-7.0 %BASO 0.3 % (Better) Range: 0.0-2.5 %PEDRO 2.2 % (Better) Range: 0.0-5.0 NEUTRO 5.6 K/uL (Better) Range: 2.0-6.9 LYMPHS 3.8 K/uL (Above high threshold) Range: 0.6-3.4 MONOS 0.3 K/uL (Better) Range: 0.0-0.9 EOS 0.3 K/uL (Better) Range: 0.0-0.7 BASO 0.0 K/uL (Better) Range: 0.0-0.2 16:27 Comprehensive Metabolic Panel 1212 SODIUM 141 mmol/L (Better) Range: 133-144 POTASSIUM 3.8 mmol/L (Better) Range: 3.5-5.1 CHLORIDE 104 mmol/L (Better) Range: 98-110 CARBON DIOXIDE 28.1 mmol/L (Better) Range: 23.0-33.0 ANION GAP 9 mmol/L (Better) Range: 6-16 BUN 15 mg/dL (Better) Range: 7-18 CREATININE, SERUM 1.04 mg/dL (Above high threshold) Range: 0.55-1.02 Comments: Please note new reference ranges effective 2014.----- BUN:CREATININE RATIO 14 (Better) EST GFR, >60 ml/min (Better) Range: >60 EST GFR, NON-AFR SAMOAN >60 ml/min (Better) Range: >60 Comments: EST GFR is reported in ml/min per 1.73 m2 of body surface area. For -Cymraes, please multiple result by 1.2.----- GLUCOSE 101 mg/dL (Above high threshold) Range: 70-100 ALK PHOSPHATASE 101 U/L (Better) Range: 46-116 TOTAL BILIRUBIN 0.40 mg/dL (Better) Range: 0.20-1.00 AST 12 U/L (Better) Range: 8-35 ALT 28 U/L (Better) Range: 14-59 Comments: Please note new reference ranges. Effective 06/07/2014.----- ALBUMIN 3.7 g/dL (Better) Range: 3.4-5.0 TOTAL PROTEIN 6.8 g/dL (Better) Range: 6.4-8.2 A/G RATIO 1.2 units (Better) Range: 1.0-1.8 CALCIUM 8.8 mg/dL (Better) Range: 8.5-10.1 16:49 Urinalysis, Reflex to Microscopic or Culture PRN 8005 pH 6.0 (Better) Range: 5.0-7.5 SP GRAVITY 1.030 (Better) Range: 1.010-1.030 APPEARANCE Clear (Better) Range: Clear COLOR Yellow (Better) Range: Straw-Yellow PROTEIN Negative mg/dL (Better) Range: Negative-Trace GLUCOSE Negative mg/dL (Better) Range: Negative KETONE Negative mg/dL (Better) Range: Negative BILIRUB Negative (Better) Range: Negative BLOOD Moderate (Abnormal) Range: Negative UROBIL 0.2 EU/dL (Better) Range: 0.2-1.0 NITRITE Negative (Better) Range: Negative LEUK Negative (Better) Range: Negative 16:49 Urine Microscopic UMIC WBC 0-2 /HPF (Better) Range: 0-5 RBC 0-2 /HPF (Better) Range: 0-2 EPITH 0-2 /HPF (Better) Range: 0-10 U TRANSEPI 0-2 /HPF (Better) Range: 0-2 17:27 XRay CHEST-PA & LAT Comments: Exam Date: 01/10/2015 16: 06Dictation Date: 01/10/2015 17:27 X CHEST PA & LAT (Better) Plan of Care Planned Observations* Name Dates Details Planned Goals not documented Goal Planned Encounters* Appointment; Provider: Davin Vance On 22-Jan-2015 09:15 * Appointment; Provider: Davin Vance On 14-Jan-2015 08:00 * Appointment; Provider: Schedule Radiology On 05-Dec-2014 09:00 Instructions * Instructions not documented Encounters Appointment; Efrain Rojo Encounter Diagnosis: Problem not documented On 11-Jan-2015 14:45 Appointment; Davin Vance Encounter Diagnosis: Problem not documented On 10-Jan-2015 08:45 Appointment; Davin Vance Encounter Diagnosis: Problem not documented On 03-Jan-2015 08:15 Appointment; Davin Vance Encounter Diagnosis: Problem not documented On 20-Dec-2014 08:45 Appointment; Davin Vance Diagnosis: Problem not documented On 06-Dec-2014 09:30 [...] Problem not documented On 16-Jan-2014 13:00 Appointment; Natalie Barillas Encounter Diagnosis: Problem not documented On 16-Jan-2014 [...]
--- OUTSIDE RECORDS SUMMARY | 2016-08-04 13:59 | XMS REPORT | Summary of Care ---
Author Author Davin Dixon M.D. Organization Unknown Address [address] [place], [place] [address] Phone Unavailable Care Team Providers Care Cryogenics Engineer Name Role Phone Davin Dixon M.D. Unavailable [...] Irritable bowel syndrome (564.1, K58.9) Status: Active Rash (782.1, R21) Status: Active [...] without aura, intractable (346.11, G43.019) Status: Active Left ankle pain (719.47, M25.572) Status: Active Left ankle sprain (845.00, S93.402A) Status: Active Encounter for test (V72.40, Z32.00) Status: Active Abdominal pain, epigastric (789.06, R10.13) Status: Active Medications Name Dates Details Multi-Vitamins Oral Tablet TAKE 1 TABLET DAILY. Davin Dixon M.D.* Started 12-Apr-2015 ActiveSertraline HCl - 50 MG Oral Tablet TAKE 1 TABLET DAILY. * Quantity: 30 Refills: 3 Davin Dixon M.D.* Started 12-Apr-2015 ActiveClonazePAM 0.5 MG Oral Tablet TAKE 1 TABLET TWICE DAILY. * Quantity: 60 Refills: 0 Davin Dixon M.D.* Started 12-Apr-2015 ActivePantoprazole Sodium 40 MG Oral Tablet Delayed Release TAKE 1 TABLET DAILY. * Quantity: 30 Refills: 1 Davin Dixon M.D.* Started 30-Jul-2015 Active Allergies and Adverse Reactions Name Dates [...] of Gallbladder Surgery History of Knee Surgery Upper Endoscopy ( EGD) Pendin30-Jul-2015 SERUM TEST 8020 Ordered:08-Jul-2015 CBC w/ Auto Diff 7150 Ordered:30-Jul-2015 BASIC METABOLIC PROFILE 1210 Ordered:30-Jul-2015 AMYLASE 1250 Ordered:30-Jul-2015 Immunization Name Dates Details Immunizations not documented [...] smoker Vital Signs Date Test Result Details 30-Jul-2015 10:21 BP Systolic 132 mm[Hg] Status: BP Diastolic 70 mm[Hg] Status: Temperature 35.2 c Status: Heart Rate 89 /min Status: O2 SAT 97 % Status: 04-Jul-2015 17:34 BP Systolic 124 mm[Hg] Status: BP Diastolic 80 mm[Hg] Status: Temperature 98.1 f Status: Heart Rate 85 /min Status: O2 SAT 99 % Status: Results Date Description Value Details 05-Jul-2015 08:30 XRay ANKLE-Left Comments: Exam Date: 07/04/2015 17: 37Dictation Date: 07/05/2015 08:30 X ANKLE COMP (MIN 3V) LT (Better) Plan of Care Planned Observations* Name Dates Details Planned Goals not documented Goal Planned Encounters* Appointment; Provider: Davin Maradiaga On 14-Aug-2015 08:30 * Appointment; Provider: Davin Dixon On 12-Aug-2015 10:45 * Appointment; Provider: Davin Vance On 14-Jan-2015 08:00 * Appointment; Provider: [facility] On 05-Dec-2014 09:00 Instructions * Instructions not documented Encounters Appointment; Davin Dixon Encounter Diagnosis: Problem not documented On 30-Jul-2015 10:00 Appointment; Roderick Veras Encounter Diagnosis: Problem not documented On 04-Jul-2015 17:10 Appointment; Davin Maradiaga Encounter Diagnosis: Problem not [...]
--- OUTSIDE RECORDS SUMMARY | 2016-08-04 13:59 | XMS REPORT | Summary of Care ---
Author Davin Ray M.D. Unknown Address Unknown Phone Unavailable Care Team Providers Care Mud Mixer Name Role Phone Marina Vance M.D. Unavailable Unavailable Davin Dixon M.D. Unavailable Unavailable Davin Dixon Unavailable Unavailable Unavailable Unavailable Functional Status Name Dates Details Functional status health issues are not documented Status: Name Dates Details Cognitive status health issues [...] Active Knee pain (719.46, M25.569) Status: Active Closed bimalleolar fracture, right, with routine healing, subsequent encounter (V54.19, S82.841D) Status: Active Right knee pain (719.46, [...] , with delivery (676.51, O92.5) Status: Active Depression (311, F32.9) Status: Active Headache (784.0, R51) Status: Active Migraine without aura, intractable (346.11, G43.019) Status: Active Left ankle pain (719.47, M25.572) Status: Active Left ankle sprain (845.00, S93.402A) Status: Active Encounter for test (V72.40, Z32.00) Status: Active Antral gastritis (535.40, K29.50) Status: Active Rash (782.1, R21) Status: Active Abdominal pain, epigastric (789.06, R10.13) Status: Active Anxiety (300.00, F41.9) Status: Active Non smoker (V49.89, Z78.9) Status: Active Left knee pain (719.46, M25.562) Status: Active Iliotibial band tendinitis of left side (728.89, M76.32) Status: Active Obesity (278.00, E66.9) Status: Active 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 Quantity: 60 Davin Dixon M.D. Start 12-Apr-2015 Active Venlafaxine HCl - 75 MG Oral Tablet TAKE 1 TABLET TWICE DAILY. * Quantity: 60 Refills: 0 Davin Dixon M.D. Start 29-Jun-2016 Active TraZODone HCl - 100 MG Oral Tablet TAKE 1/2 TO 1 TABLET AT BEDTIME. * Refills: 0 Davin Dxion M.D. Start 29-Jun-2016 Active HydrOXYzine HCl - 50 MG Oral Tablet Take 1 tablet three times a day as needed for anxiety. * Refills: 0 Davin Dixon M.D. * Start 29-Jun-2016 Active Multi-Vitamins Oral Tablet TAKE 1 TABLET DAILY. * Refills: 0 Davin Dixon M.D. * Start 12-Apr-2015 Active Allergies and Adverse Reactions Name Dates Details Iodine Tincture SWAB (Allergy) Status: Active Sulfa Drugs (Allergy) Status: Active Past Medical History Name Dates [...] of Gallbladder Surgery History of Knee Surgery History of Knee Arthroscopy With Limited Synovectomy ORTHO KNEE LEFT Ordered: 09-Jul-2016 Immunization Name Dates Details Immunizations not documented Family History Name Dates Details Family history of Coronary [...] Alcohol Abuse Comments: Family History Status: Active Name Dates Details Family history of cerebrovascular accident (V17.1, Z82.3) Status: Active Name Dates Details Family history of suicide (V17.0, Z81.8) Status: Active Social History Name Dates Details - Status: Name Dates Details Never smoker Vital Signs Date Test Result Details 14-Jul-2016 15:49 BP Systolic 136 mm[Hg] Status: Comments: Location: ; Position: BP Diastolic 85 mm[Hg] Status: Comments: Location: ; Position: Heart Rate 88 /min Status: Comments: Location: ; Height 67 in Status: 29-Jun-2016 15:56 BP Systolic 118 mm[Hg] Status: Comments: Location: ; Position: BP Diastolic 76 mm[Hg] Status: Comments: Location: ; Position: Heart Rate 128 /min Status: Comments: Location: ; Height 67 in Status: Weight 271 lb Status: Physical Findings 89 Status: Comments: O2 Saturation Body Mass Index Calculated 42.45 kg/m2 Status: Body Surface Area Calculated 2.3 m2 Status: Results Date Description Value Details Results not documented Plan of Care Name Dates Details Planned Observations Planned Goals not documented Interventions Provided Labs/Procedures/Imaging* ORTHO KNEE LEFT; To be Done: 14 Jul 2016 Instructions Name Dates Details Instructions not documented Encounters Appointment; Davin Dixon M.D. Encounter Diagnosis: Problem not documented On 29-Jun-2016 16:00 Appointment; Davin Dixon M.D. Encounter Diagnosis: Problem not documented On 11-Nov-2015 15:15 Appointment; Davin Dixon M.D. Encounter Diagnosis: Problem not documented On 07-Aug-2015 15:15 Appointment; Charles Moreno M.D.|Rylee|Lorraine,CARMEN|Lorraine,CARMEN, Encounter Diagnosis: Problem not documented On 02-Aug-2015 07:45 Appointment; Shayna Mariscal Encounter Diagnosis: Problem not documented On 02-Aug-2015 07:15 Appointment; Davin Dixon M.D. Encounter Diagnosis: Problem not documented On 30-Jul-2015 10:00 Appointment; Roderick Veras M.D. Encounter Diagnosis: Problem not documented On 04-Jul-2015 17:10 Appointment; Davin Maradiaga M.D. Encounter Diagnosis: Problem not documented On 28-May-2015 10:00 Appointment; Davin Vance M.D. Encounter Diagnosis: Problem not documented On 17-May-2015 08:30 Appointment; Davin Dixon M.D. Encounter Diagnosis: Problem not documented On 14-May-2015 10:30 Appointment; Davin Dixon M.D. Encounter Diagnosis: Problem not documented On 12-Apr-2015 15:00 Appointment; Harinder Shaikh M.D. Encounter Diagnosis: Problem not documented On 01-Mar-2015 09:15 Appointment; Efrain Cantrell P.T. Encounter Diagnosis: Problem not documented On 01-Mar-2015 08:30 Appointment; Davin Vance M.D. Encounter Diagnosis: Problem not documented On 24-Jan-2015 10:30 Appointment; Efrain Rojo M.D. Encounter Diagnosis: Problem not documented On 11-Jan-2015 14:45 Appointment; Davin Vance M.D. Encounter Diagnosis: Problem not documented On 10-Jan-2015 08:45 Appointment; Davin Vance M.D. Encounter Diagnosis: Problem not documented On 03-Jan-2015 08:15 Appointment; Davin Vance M.D. Encounter Diagnosis: Problem not documented On 20-Dec-2014 08:45 Appointment; Davin Vance M.D. Encounter Diagnosis: Problem not documented On 06-Dec-2014 09:30 Appointment; Davin Dixon M.D. Encounter Diagnosis: Problem not documented On 05-Dec-2014 09:45 Appointment; Davin Dixon M.D. Encounter Diagnosis: Problem not documented On 26-Nov-2014 15:15 Appointment; Davin Dixon M.D. Encounter Diagnosis: Problem not documented On 09:00"
--- OUTSIDE RECORDS SUMMARY | 2016-08-04 14:00 | XMS REPORT | Summary of Care ---
Author Author Davin Dixon M.D. Organization Unknown Address [address] [place], [place] [id number] Phone Unavailable Care Team Providers Care Fugitive Investigator Name Role Phone Davin Dixon M.D. [...] Quantity: 1 Davin Dixon M.D.* Started 20-Mar-2014 ActiveNorco 5-325 MG Oral Tablet TAKE 1 TABLET EVERY 6 HOURS NEEDED FOR PAIN. * Quantity: 30 Refills: 0 Davin Dixon M.D.* Started 04-May-2014 Active Allergies [...] to report Results Date Description Value Details 19-Jul-2014 10:48 SERUM TEST 8020 SERUM TEST Negative (Better) Range: Negative Comments: Internal Control: Acceptable----- Plan of Care Planned Observations* Name Dates [...]
--- OUTSIDE RECORDS SUMMARY | 2016-08-04 14:00 | XMS REPORT | Summary of Care ---
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) Status: Active Closed bimalleolar fracture, right, with routine healing, subsequent encounter (V54.16, S82.841D) Status: Active Right knee pain (719.46, M25.561) Status: Active Pre-operative exam (V72.84, Z01.818) Status: Active Medications Name Dates Details Medication [...] Endometriotic Tissue History of Duodenoscopy With Biopsy Urinalysis, Reflex to Microscopic or Culture PRN [id number] Ordered:10-Jan-2015 XRay CHEST-PA & LAT Ordered:10-Jan-2015 ORTHO KNEE RIGHT Ordered:06-Dec-2014 Immunization Name Dates [...] to report Results Date Description Value Details 10-Jan-2015 15:44 ECG/ EKG Preop Electro CardioGram (Better) 16:08 PROTIME PANEL 7000 PROTIME 12.3 secs (Better) Range: 12.0-14.9 INR 0.92 (Better) 16:10 CBC w/ Auto Diff 7150 Comments: DOS 01/14/15 Dr. Vance [facility] WBC 10.2 K/uL (Better) Range: 4.5-11.0 RBC [...] ml/min (Better) Range: >60 EST GFR, NON-AFR TUNISIAN >60 ml/min (Better) Range: >60 Comments: EST GFR is reported in ml/min per 1.73 m2 of body surface area. For -Samoan, please multiple result by 1.2.----- GLUCOSE 101 [...] 1.0-1.8 CALCIUM 8.8 mg/dL (Better) Range: 8.5-10.1 Plan of Care Planned Observations* Name Dates Details Planned Goals not documented Goal Planned Encounters* Appointment; Provider: Davin Vance On 22-Jan-2015 09:15 * Appointment; Provider: Davin Vance On 14-Jan-2015 08:00 * Appointment; Provider: Efrain Rojo On 11-Jan-2015 14:45 * Appointment; Provider: Schedule Radiology On 05-Dec-2014 09:00 Instructions * Instructions not documented Encounters Appointment; Daivn Vance Encounter Diagnosis: Problem not documented On [...]
--- OUTSIDE RECORDS SUMMARY | 2016-08-04 14:00 | XMS REPORT | Summary of Care ---
Author Author Natalie Barillas M.D. Organization Unknown Address [address] [place], [place] [phone] Phone Unavailable Care Team Providers Care Nephrology Social Worker Name Role Phone Davin Dixon M.D. Unavailable [...] ml/min (Better) Range: >60 EST GFR, NON-AFR BRITISH >60 ml/min (Better) Range: >60 Comments: EST GFR is reported in ml/min per 1.73 m2 of body surface area. For -Jordanian, please multiple result by 1.2.----- BUN:CREATININE RATIO [...]
--- OUTSIDE RECORDS SUMMARY | 2016-08-04 14:00 | XMS REPORT | Summary of Care ---
Author Davin Ray M.D. Unknown Address Unknown Phone Unavailable Care Team Providers Care Wet Roaster Name Role Phone Marina Vance M.D. Unavailable [...] of left side (728.89, M76.32) Status: Active Medications Name Dates Details Multi-Vitamins Oral Tablet TAKE 1 TABLET DAILY. Davin Dixon M.D. Start 12-Apr-2015 Active ClonazePAM 0.5 MG Oral Tablet TAKE 1 TABLET TWICE DAILY. * Quantity: 60 Refills: 0 Davin Dixon M.D. Start 12-Apr-2015 Active Venlafaxine HCl - 75 MG Oral Tablet TAKE 1 TABLET TWICE DAILY. * Quantity: 60 Refills: 0 Davin Dixon M.D. Start 29-Jun-2016 Active TraZODone HCl - 100 MG Oral Tablet TAKE 1/2 TO 1 TABLET AT BEDTIME. * Refills: 0 Davin Dixon M.D. Start 29-Jun-2016 Active HydrOXYzine HCl - 50 MG Oral Tablet Take 1 tablet three times a day as needed for anxiety. * Refills: 0 Davin Dixon M.D. * Start 29-Jun-2016 Active Allergies and Adverse Reactions Name Dates [...]
--- OUTSIDE RECORDS SUMMARY | 2016-08-04 14:00 | XMS REPORT ---
Author Becky Ferreira Organization [employer] Address Unknown Phone Unavailable Care Team Providers Care Fork Lift Technician Name Role Phone Becky Brizuela CP Unavailable Allergies, Adverse Reactions, Alerts Substance Reaction Event Type SULFA Info Not Available Drug Allergy Problems Problem Type Condition Code Onset Dates Condition Status Assessment Abnormal urine findings R82.90 Active Assessment Dysuria R30.0 Active Medications Medication Code System Code Instructions Start Date End Date Status Dosage Clonazepam [facility] [address]-48 0.5 MG Orally Twice a day 1 tablet Pyridium [facility] [address]-18 100 MG Orally Three times a day Feb 03, 2016 Feb 05, 2016 1 tablet after meals Zoloft [facility] [address]-24 50 MG Orally Once a day 1 tablet Cephalexin [facility] [address]-22 500 MG Orally Twice a day Feb 03, 2016Jan 1 capsule Procedures Procedure Coding System Code Date URINE CULTURECOLONY COUNT CPT-4 91773 Feb 03, 2016 OFFICE VISIT NEW PATIENT LEVEL 3 CPT-4 64932 Feb 03, 2016 URINALYSIS NONAUTO WO SCOPE CPT-4 13597 Feb 03, 2016 Vital Signs Date/Time: Feb 03, 2016 BMI 39.86 Index Weight 254 lb 8 oz lbs Height 5 ft 7 in in Blood Pressure Diastolic 72 mm Hg Blood Pressure Systolic 120 mm Hg Cardiac Monitoring Heart Rate 81 /min Temperature 97.9 F Oximetry 97 % Results Name Result Date Reference Range Unit Abnormality Flag Urinalysis (UA) - IH ----Leukocytes trace 20160203 ----pH 6.0 20160203 ----Specific [place] 1.025 20160203 ----Ketones neg [id number] 0 - 0 ----Bilirubin neg 20160203 ----Nitrates neg 20160203 ----Color yellow 20160203 ----Protein neg [id number] 0 - 0 ----Character cloudy 20160203 ----Blood small 20160203 ----Urobilirubin 0.2 [id number] 0.2 - 1 ----Glucose neg [id number] 0 - 0 Summary Purpose [employer] Submission
--- OUTSIDE RECORDS SUMMARY | 2016-08-04 14:00 | XMS REPORT | Summary of Care ---
Author Author Josh Peters, FACS,, Charles Organization Unknown Address [address] [place], [place] [id number] Phone Unavailable Care Team Providers Care Rod Cup Filler Name Role Phone Davin Dixon M.D. 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) Status: Active Encounter for test (V72.40, Z32.00) Status: Active Tonsillar hypertrophy (474.11, J35.1) Status: Active Amenorrhea (626.0, N91.2) Status: Active Memory loss (780.93, R41.3) Status: Active Anxiety (300.00, F41.9) Status: Active Depression (311, F32.9) Status: Active Rash (782.1, R21) Status: Active Gastroenteritis (558.9, K52.9) Status: Active Headache (784.0, R51) Status: Active Lower back pain (724.2, M54.5) Status: Active Abdominal cramping (789.00, R10.9) Status: Active Pre-procedural examination (V72.84, Z01.818) Status: Active Cerumen impaction (380.4, H61.20) Status: Active Rectal bleeding (569.3, K62.5) Status: Active Left knee pain (719.46, M25.562) Status: Active Right knee pain (719.46, M25.561) Status: Active Left ankle pain (719.47, M25.572) Status: Active Knee pain (719.46, M25.569) Status: Active Chest pain (786.50, R07.9) Status: Active Irritable bowel syndrome (564.1, K58.9) Status: Active 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, 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 Abnormal liver enzymes (790.5, R74.8) Status: Active Suppressed , with delivery (676.51, O92.5) Status: Active Closed bimalleolar fracture, right, with routine healing, subsequent encounter (V54.16, S82.841D) Status: Active Cervicalgia (723.1, M54.2) Status: Active Abdominal pain, epigastric (789.06, R10.13) Status: Active Knee pain, right (719.46, M25.561) Status: Active Iliotibial band tendinitis of left side (728.89, M76.32) Status: Active Left ankle sprain (845.00, S93.402A) Status: Active History of Appendectomy Status: Resolved Family history of Diabetes Mellitus (V18.0) Status: Active Family history of Alcohol Abuse Status: Active Family history of cerebrovascular accident (V17.1, Z82.3) Status: Active Medications Name Dates Details Multi-Vitamins [...] Resolved Procedures Procedure Dates Details History of Tonsillectomy History of Appendectomy History of Cholecystectomy History of Ovarian Cystectomy History of Duodenoscopy With Biopsy History of Gallbladder Surgery History of Knee Surgery History of Laparos Large Intest Laser Vaporization Endometriotic Tissue Upper Endoscopy ( EGD) Ordered:30-Jul-2015 Immunization Name Dates Details Immunizations not [...] Arteriosclerosis (V17.49) Comments: Family History Status: Active Father* Name [...] X ANKLE COMP (MIN 3V) LT (Better) 30-Jul-2015 11:18 CBC w/ Auto Diff 7150 WBC 13.3 K/uL (Above high threshold) Range: 4.5-11.0 RBC 5.28 mil/uL (Above high threshold) Range: 3.60-5.00 HGB 15.3 g/dL (Better) Range: 12.0-16.0 HCT 46.1 % (Better) Range: 36.0-48.0 MCV 87.5 fL (Better) Range: 80.0-99.0 MCH 29.1 pg (Better) Range: 27.3-32.5 MCHC 33.2 % (Better) Range: 32.0-36.0 RDW 13.5 % (Better) Range: 11.6-14.8 PLATELETS 341 K/uL (Better) Range: 150-400 MPV 7.3 fL (Better) Range: 6.0-11.0 %NEUTRO 58.3 % (Better) Range: 37.0-80.0 %LYMPHS 19.8 % (Better) Range: 13.0-50.0 %MONO 2.7 % (Better) Range: 0.0-12.0 %EOS 17.6 % (Above high threshold) Range: 0.0-7.0 %BASO 0.2 % (Better) Range: 0.0-2.5 %PEDRO 1.3 % (Better) Range: 0.0-5.0 NEUTRO 7.7 K/uL (Above high threshold) Range: 2.0-6.9 LYMPHS 2.6 K/uL (Better) Range: 0.6-3.4 MONOS 0.4 K/uL (Better) Range: 0.0-0.9 EOS 2.3 K/uL (Above high threshold) Range: 0.0-0.7 BASO 0.0 K/uL (Better) Range: 0.0-0.2 11:33 AMYLASE 1250 AMYLASE 55 U/L (Better) Range: 25-115 11:33 BASIC METABOLIC PROFILE 1210 SODIUM 136 mmol/L (Better) Range: 133-144 POTASSIUM 4.1 mmol/L (Better) Range: 3.5-5.1 CHLORIDE 99 mmol/L (Better) Range: 98-110 CARBON DIOXIDE 28.4 mmol/L (Better) Range: 23.0-33.0 ANION GAP 9 mmol/L (Better) Range: 6-16 BUN 11 mg/dL (Better) Range: 7-18 CREATININE, SERUM 0.97 mg/dL (Better) Range: 0.55-1.02 Comments: Please note new reference ranges effective 2014.----- EST GFR, >60 ml/min (Better) Range: >60 EST GFR, NON-AFR TRINIDADIAN >60 ml/min (Better) Range: >60 Comments: EST GFR is reported in ml/min per 1.73 m2 of body surface area. For -Georgian, please multiple result by 1.2.----- BUN:CREATININE RATIO 11 (Better) GLUCOSE 95 mg/dL (Better) Range: 70-100 CALCIUM 9.8 mg/dL (Better) Range: 8.5-10.1 Plan of Care Planned Observations* Name Dates Details Planned Goals not documented Goal Planned Encounters* Appointment; Provider: Davin Maradiaga On 14-Aug-2015 08:30 * Appointment; Provider: Davin Dixon On 12-Aug-2015 10:45 * Appointment; Provider: Davin Dixon On 05-Aug-2015 10:30 * Appointment; Provider: Davin Vance On 14-Jan-2015 08:00 * Appointment; Provider: Schedule Radiology On 05-Dec-2014 09:00 Instructions * Instructions not documented Encounters Appointment; Charles Moreno Encounter Diagnosis: Problem not documented On 02-Aug-2015 07:45 Appointment; Shayna Mariscal Encounter Diagnosis: Problem not documented On 02-Aug-2015 07:15 Appointment; Davin Dixon Encounter Diagnosis: Problem not [...] documented On 20-Mar-2014 15:00 Appointment; Davin Dixon Diagnosis: Problem not documented On 27-Feb-2014 10:00 [...]
--- OUTSIDE RECORDS SUMMARY | 2016-08-04 14:00 | XMS REPORT | Summary of Care ---
Author Author Neel Peters, [facility] Address [address] [place] [address] Phone Unavailable Care Team Providers Care Transport Specialist Name Role Phone Davin Dixon PP Unavailable [...] of drug dependence/abuse (304.63, F19.21) Status: Active Medications Name Dates Details Medication [...]
--- OUTSIDE RECORDS SUMMARY | 2016-08-04 14:00 | XMS REPORT | Summary of Care ---
Author Author Efrain Cantrell P.T. Unknown Address [address] [place], [place] [id number] Phone Unavailable Care Team Providers Care Acquisition Marketing Coordinator Name Role Phone Davin Dixon M.D. Unavailable [...] right, with routine healing, subsequent encounter (V54.16, S82.175L) Status: Active Right knee pain (719.46, M25.561) Status: Active Pre-operative exam (V72.84, Z01.818) Status: Active Knee pain, right (719.46, M25.561) Status: Active 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, 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 Post-op pain (338.18, G89.18) Status: Active Status post arthroscopy of right knee (V45.89, Z98.89) Status: Active Medications Name Dates Details Hydrocodone-Acetaminophen 5-325 MG Oral Tablet TAKE 1 TABLET EVERY 6 HOURS NEEDED FOR PAIN. Quantity: 30 Davin Dixon M.D.* Started 15-Jan-2015 Active Allergies and Adverse Reactions Name Dates Details Iodine Tincture SWAB Status: Active Sulfa Drugs Status: Active Past Medical History Name Dates Details History of Peptic Ulcer (V12.71) Status: Resolved Procedures Procedure Dates Details History of Appendectomy History of Ovarian Cystectomy History of Cholecystectomy History of Laparos Large Intest Laser Vaporization Endometriotic Tissue History of Duodenoscopy With Biopsy ORTHO SPINE LUMBAR (5 VIEWS) Ordered:27-Feb-2015 Immunization [...] * Instructions not documented Encounters Appointment; Efrain Cantrell Encounter Diagnosis: Problem not [...] Problem not documented On 27-Feb-2014 10:00 Appointment; Daivn Dixon Encounter Diagnosis: Problem not documented On [...]
--- OUTSIDE RECORDS SUMMARY | 2016-08-04 14:01 | XMS REPORT | Summary of Care ---
Author Author Bora Wright Organization Unknown Address [address], [place] [address] Phone Unavailable Care Team Providers Care Petroleum Refining Firer Name Role Phone Davin Dixon M.D. Unavailable [...] Active Knee pain (719.46, M25.569) Status: Active Medications Name Dates Details Hydrocodone-Acetaminophen [...] Planned Encounters* Appointment; Provider: Davin Vance On 20-Dec-2014 08:45 * Appointment; Provider: Schedule Radiology On 05-Dec-2014 [...]
--- OUTSIDE RECORDS SUMMARY | 2016-08-04 14:01 | XMS REPORT | Summary of Care ---
Author Author Gracie Ross Unknown Address [address] [place], [place] [id number] Phone Unavailable Care Team Providers Care General Supervisor Name Role Phone Davin Dixon PP Unavailable [...] Right knee pain (719.46, M25.561) Status: Active Medications Name Dates Details Medication [...] Problem not documented On 09:00 Appointment; Davin iDxon Encounter Diagnosis: Problem not documented On 20-Mar-2014 [...]
--- OUTSIDE RECORDS SUMMARY | 2016-08-04 14:01 | XMS REPORT | Summary of Care ---
Author Author Davin Dixon M.D. Organization Unknown Address [address] [place], [place] [address] Phone Unavailable Care Team Providers Care Supervisor [place] Name Role Phone Davin Dixon M.D. Unavailable [...] Status: Active Anxiety (300.00, F41.9) Status: Active Medications Name Dates Details Multi-Vitamins Oral Tablet TAKE 1 TABLET DAILY. Davin Dixon M.D.* Started 12-Apr-2015 ActiveSertraline HCl - 50 MG Oral Tablet TAKE ONE TABLET BY MOUTH ONCE DAILY * Quantity: 30 Refills: 0 Davin Dixon M.D.* Started 12-Apr-2015 ActiveClonazePAM 0.5 MG Oral Tablet TAKE 1 TABLET TWICE DAILY. * Quantity: 60 Refills: 0 Davin Dixon M.D.* Started 12-Apr-2015 ActivePantoprazole Sodium 40 MG Oral Tablet Delayed Release TAKE 1 TABLET TWICE DAILY 30 MINUTES BEFORE BREAKFAST AND DINNER. * Quantity: 60 Refills: 3 Davin Dixon M.D.* Started 30-Jul-2015 Ended 05-Dec-2015 ActiveSucralfate 1 GM/10ML Oral Suspension TAKE 10 ML BEFORE MEALS AND AT BEDTIME * Quantity: 200 Refills: 0 Davin Dixon M.D.* Started 07-Aug-2015 ActiveClobetasol Propionate 0.05 % External Cream APPLY SPARINGLY TO AFFECTED AREA(S) TWICE DAILY * Quantity: 30 Refills: 3 Davin Dixon M.D.* Started 07-Aug-2015 Active Allergies and Adverse Reactions Name Dates [...] of Gallbladder Surgery History of Knee Surgery Procedures not documented Immunization Name Dates Details [...] smoker Vital Signs Date Test Result Details 07-Aug-2015 15:13 BP Systolic 130 mm[Hg] Status: BP Diastolic 78 mm[Hg] Status: Heart Rate 88 /min Status: O2 SAT 98 % Status: 30-Jul-2015 10:21 BP Systolic 132 mm[Hg] Status: BP Diastolic 70 mm[Hg] Status: Temperature 35.2 c Status: Heart Rate 89 /min Status: O2 SAT 97 % Status: Results Date Description Value Details 30-Jul-2015 11:18 CBC w/ Auto Diff 7150 [...] ml/min (Better) Range: >60 EST GFR, NON-AFR DUTCH >60 ml/min (Better) Range: >60 Comments: EST GFR is reported in ml/min per 1.73 m2 of body surface area. For -Cuban, please multiple result by 1.2.----- BUN:CREATININE RATIO 11 (Better) GLUCOSE 95 mg/dL (Better) Range: 70-100 CALCIUM 9.8 mg/dL (Better) Range: 8.5-10.1 Plan of Care Planned Observations* Name Dates Details Planned Goals not documented Goal Planned Encounters* Appointment; Provider: Davin Dixon On 11-Nov-2015 15:15 * Appointment; Provider: Davin Maradiaga On 14-Aug-2015 08:30 * Appointment; Provider: Charles Moreno On 09-Aug-2015 09:15 * Appointment; Provider: Davin Vance On 14-Jan-2015 08:00 * Appointment; Provider: Schedule Radiology On 05-Dec-2014 09:00 Instructions * Instructions not documented Encounters Appointment; Davin Dixon Encounter Diagnosis: Problem not documented On 07-Aug-2015 15:15 Appointment; Charles Moreno Encounter Diagnosis: Problem not documented On 02-Aug-2015 07:45 Appointment; Shayna Mariscal Encounter Diagnosis: Problem not documented On 02-Aug-2015 07:15 Appointment; Davin Dixon Encounter Diagnosis: Problem not documented On 30-Jul-2015 10:00 Appointment; Roedrick Veras Encounter Diagnosis: Problem not documented On [...]
--- OUTSIDE RECORDS SUMMARY | 2016-08-04 14:01 | XMS REPORT | Summary of Care ---
Author Author Bora Wright Organization Unknown Address [address], [place] [id number] Phone Unavailable Care Team Providers Care Crop Pest Control Specialist Name Role Phone Davin Dixon M.D. Unavailable [...] Status: Active Gastroenteritis (558.9, K52.9) Status: Active Acute pharyngitis (462, J02.9) Status: [...] Duodenoscopy With Biopsy History of Appendectomy ORTHO KNEE LEFT Ordered:17-May-2015 Immunization Name Dates Details Immunizations not documented [...] smoker Vital Signs Date Test Result Details 17-May-2015 08:47 BP Systolic 129 mm[Hg] Status: [...] Planned Encounters* Appointment; Provider: Davin Dixon On 12-Aug-2015 10:45 * Appointment; Provider: Davin Vance On 30-May-2015 08:00 * Appointment; Provider: Davin Maradiaga On 28-May-2015 10:00 * Appointment; Provider: Davin Vance On 14-Jan-2015 [...]
--- OUTSIDE RECORDS SUMMARY | 2016-08-04 14:01 | XMS REPORT | Summary of Care ---
Author Author Bora Wright Organization Unknown Address [address] [place], [place] [id number] Phone Unavailable Care Team Providers Care Roof Bolter Helper Name Role Phone Marina Vance M.D. Unavailable Unavailable Davin Dixon PP Unavailable [...] right, with routine healing, subsequent encounter (V54.16, S82.549O) Status: Active Right knee pain (719.46, M25.561) [...] Diff 7150 Comments: DOS 01/14/15 Dr. Vance [facility] WBC 10.2 K/uL (Better) Range: 4.5-11.0 RBC [...] ml/min (Better) Range: >60 EST GFR, NON-AFR CITIZEN OF [place] >60 ml/min (Better) Range: >60 Comments: EST GFR is reported in ml/min per 1.73 m2 of body surface area. For -Senegalese, please multiple result by 1.2.----- GLUCOSE 101 [...] Planned Encounters* Appointment; Provider: Davin Vance On 14-Jan-2015 08:00 [...] documented On 03-Jan-2015 08:15 Appointment; Davin Vance Diagnosis: Problem not documented On 20-Dec-2014 08:45 [...]
--- OUTSIDE RECORDS SUMMARY | 2016-08-04 14:01 | XMS REPORT | Summary of Care ---
Author Author Provider, Outside Organization Unknown Address Unknown Phone Unavailable Care Team Providers Care Steersman Name Role Phone Davin Dixon M.D. Unavailable [...] anxiety. * Refills: 0 Davin Dixon M.D. Start 29-Jun-2016 Active Allergies and Adverse Reactions [...] History of Knee Arthroscopy With Limited Synovectomy Procedures not documented Immunization Name Dates Details [...] smoker Vital Signs Date Test Result Details 29-Jun-2016 15:56 BP Systolic 118 mm[Hg] Status: [...] Details Planned Observations Planned Goals not documented Planned Encounters Appointment; Provider: Davin Vance M.D. On 02-Jul-2016 14:00 Appointment; Provider: Davin Vance M.D. On 14-Jan-2015 08:00 Appointment; Provider: Schedule Radiology On 05-Dec-2014 09:00 Instructions Name Dates Details Instructions not documented Encounters Appointment; Davin Dixon M.D. Encounter Diagnosis: Problem not documented On 29-Jun-2016 16:00 Appointment; Davin Dixon M.D. Encounter Diagnosis: Problem not documented On 11-Nov-2015 15:15 Appointment; Davin Dixon M.D. Encounter Diagnosis: Problem not documented On 07-Aug-2015 15:15 Appointment; Charles Moreno M.D.|Rylee|Lorraine,ARLEY,CARMEN, Encounter Diagnosis: Problem not documented On 02-Aug-2015 [...]
--- OUTSIDE RECORDS SUMMARY | 2016-08-04 14:01 | XMS REPORT ---
Author Author Davin Dixon Organization Unknown Address [address], [place] [phone] Phone Care Team Providers Care Beauty School Instructor Name Role Phone Davin Destiny PP Unavailable Unavailable Reason for Referral No Reason for Referral was given. History of Present Illness No HPI available. 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 Encounters * Appointment 07/20/2012
--- OUTSIDE RECORDS SUMMARY | 2016-08-04 14:01 | XMS REPORT | Continuity of care Document ---
Author Author GENERATED, SYSTEM Organization Unknown Address Unknown Phone Unavailable Purpose Hospital Course Allergies, Adverse Reactions, Alerts * Contrast causes Hives. * No Latex Allergy. Problems No relevant problems exist. Procedures No relevant procedures performed. Medication Medication reconciliation has not been performed. Results Urinalysis from 07/09/2013 4:40 PMURINE APPEARANCE CLEAR (CLEAR ) URINE COLOR YELLOW (STRAW/YELL/DK YELL ) URINE SPECIFIC GRAVITY 1.010 (<=1.005->=1.030 ) URINE BILIRUBIN NEGATIVE (NEGATIVE ) URINE BLOOD NEGATIVE (NEGATIVE ) URINE GLUCOSE NEGATIVE MG/DL (NEGATIVE MG/DL) URINE KETONES NEGATIVE MG/DL (NEGATIVE MG/DL) *URINE LEUKOCYTES NEGATIVE (NEGATIVE ) URINE NITRITES NEGATIVE (NEGATIVE ) URINE PH 7.0 (5.0-8.0 ) URINE PROTEIN NEGATIVE MG/DL (NEGATIVE MG/DL) URINE UROBILINOGEN 0.2 EU/DL (0.2-1.0 EU/DL)
--- OUTSIDE RECORDS SUMMARY | 2016-08-04 14:01 | XMS REPORT | Summary of Care ---
Author Author Davin Dixon M.D. Organization Unknown Address [address] [place], [place] [phone] Phone Unavailable Care Team Providers Care Stock Digger Name Role Phone Davin Dixon M.D. Unavailable [...] Endometriotic Tissue History of Duodenoscopy With Biopsy MRI KNEE RIGHT Ordered:26-Nov-2014 Immunization Name Dates Details Immunizations not documented [...] smoker Vital Signs Date Test Result Details 26-Nov-2014 15:18 BP Systolic 110 mm[Hg] Status: [...]
--- OUTSIDE RECORDS SUMMARY | 2016-08-04 14:02 | XMS REPORT | Summary of Care ---
Author Author Davin Dixon M.D. Organization Unknown Address [address] [place], [place] [phone] Phone Unavailable Care Team Providers Care Hockey Scout Name Role Phone Davin Dixon M.D. Unavailable [...]
--- OUTSIDE RECORDS SUMMARY | 2016-08-04 14:02 | XMS REPORT ---
Author Author GENERATED, SYSTEM Organization Unknown Address Unknown Phone Unavailable Care Team Providers Care Stud Setter Name Role Phone MD FRANKIE, [facility] [phone] Reason For Visit Reason for Visit from 01/14/2015 9:00 AM:* Pt Stated Reason for Adm : "right knee exploratory surgery" Chief Complaint RIGHT KNEE PAIN,RIGHT KNEE ARTHROSCO Social History Social History from 01/14/2015 1:26 PM:* Tobacco Use? : Never Smoker Social History from 01/14/2015 9:00 AM:* Tobacco Use? : Never Smoker Functional Status Functional Status from 01/14/2015 2:01 PM:* LOC : Alert Functional Status from 01/14/2015 1:21 PM:* LOC : Alert * Oriented To : Person,Place,Time,Event Functional Status from 01/14/2015 12:15 PM:* LOC : Drowsy Functional Status from 01/14/2015 9:00 AM:* LOC : Alert * Oriented To : Person,Place,Time,Event * Weight Bearing Status : Full * Assist Level : Independent * # Assists : Independent Vital Signs Hospital Vital Signs from 01/14/2015 2:30 PM:* Height : 5/7 ft,in * Temperature : 97.6 F * Pulse : 75 * Respirations : 18 * BP : 112/71 Hospital Vital Signs from 01/14/2015 2:15 PM:* Height : 5/7 ft,in * Pulse : 85 * Respirations : 18 * BP : 115/68 Hospital Vital Signs from 01/14/2015 2:00 PM:* Height : 5/7 ft,in * Pulse : 65 * Respirations : 18 * BP : 119/76 Hospital Vital Signs from 01/14/2015 1:46 PM:* Height : 5/7 ft,in * Temperature : 98.4 F * Pulse : 52 * Respirations : 18 * BP : 114/69 Hospital Vital Signs from 01/14/2015 1:35 PM:* Heart Rate : 67 * Resp Rate : 16 * Systolic BP (mmHg) : 114 * Diastolic BP (mmHg) : 65 * Mean BP (mmHg) : 82 * O2 Saturation (%) : 92 Hospital Vital Signs from 01/14/2015 1:30 PM:* Temp : 98.2 * Heart Rate : 65 * Resp Rate : 8 * Systolic BP (mmHg) : 115 * Diastolic BP (mmHg) : 74 * Mean BP (mmHg) : 88 * O2 Saturation (%) : 99 Hospital Vital Signs from 01/14/2015 1:25 PM:* Heart Rate : 67 * Resp Rate : 20 * Systolic BP (mmHg) : 111 * Diastolic BP (mmHg) : 73 * Mean BP (mmHg) : 87 * O2 Saturation (%) : 98 Hospital Vital Signs from 01/14/2015 1:20 PM:* Heart Rate : 64 * Resp Rate : 17 * Systolic BP (mmHg) : 111 * Diastolic BP (mmHg) : 63 * Mean BP (mmHg) : 73 * O2 Saturation (%) : 97 Hospital Vital Signs from 01/14/2015 1:15 PM:* Temp : 98 * Heart Rate : 62 * Resp Rate : 9 * Systolic BP (mmHg) : 102 * Diastolic BP (mmHg) : 80 * Mean BP (mmHg) : 88 * O2 Saturation (%) : 98 Hospital Vital Signs from 01/14/2015 1:10 PM:* Heart Rate : 65 * Resp Rate : 20 * Systolic BP (mmHg) : 111 * Diastolic BP (mmHg) : 70 * Mean BP (mmHg) : 91 * O2 Saturation (%) : 100 Hospital Vital Signs from 01/14/2015 1:05 PM:* Heart Rate : 61 * Resp Rate : 10 * Systolic BP (mmHg) : 103 * Diastolic BP (mmHg) : 63 * Mean BP (mmHg) : 79 * O2 Saturation (%) : 100 Hospital Vital Signs from 01/14/2015 1:00 PM:* Temp : 98.2 * Heart Rate : 80 * Resp Rate : 18 * Systolic BP (mmHg) : 106 * Diastolic BP (mmHg) : 51 * Mean BP (mmHg) : 65 * O2 Saturation (%) : 100 Hospital Vital Signs from 01/14/2015 12:55 PM:* Heart Rate : 81 * Resp Rate : 16 * Systolic BP (mmHg) : 89 * Diastolic BP (mmHg) : 59 * Mean BP (mmHg) : 65 * O2 Saturation (%) : 94 Hospital Vital Signs from 01/14/2015 12:50 PM:* Heart Rate : 87 * Resp Rate : 26 * Systolic BP (mmHg) : 110 * Diastolic BP (mmHg) : 75 * Mean BP (mmHg) : 88 * O2 Saturation (%) : 98 Hospital Vital Signs from 01/14/2015 12:45 PM:* Heart Rate : 87 * Resp Rate : 25 * Systolic BP (mmHg) : 109 * Diastolic BP (mmHg) : 95 * Mean BP (mmHg) : 96 * O2 Saturation (%) : 99 Hospital Vital Signs from 01/14/2015 12:40 PM:* Temp : 98 * Heart Rate : 87 * Resp Rate : 11 * Systolic BP (mmHg) : 102 * Diastolic BP (mmHg) : 74 * Mean BP (mmHg) : 92 * O2 Saturation (%) : 99 Hospital Vital Signs from 01/14/2015 12:35 PM:* Heart Rate : 91 * Resp Rate : 22 * Systolic BP (mmHg) : 128 * Diastolic BP (mmHg) : 82 * Mean BP (mmHg) : 91 * O2 Saturation (%) : 99 Hospital Vital Signs from 01/14/2015 12:30 PM:* Heart Rate : 81 * Resp Rate : 14 * Systolic BP (mmHg) : 130 * Diastolic BP (mmHg) : 110 * Mean BP (mmHg) : 112 * O2 Saturation (%) : 100 Hospital Vital Signs from 01/14/2015 12:25 PM:* Temp : 98 * Heart Rate : 78 * Resp Rate : 12 * Systolic BP (mmHg) : 111 * Diastolic BP (mmHg) : 64 * Mean BP (mmHg) : 82 * O2 Saturation (%) : 100 Hospital Vital Signs from 01/14/2015 12:20 PM:* Heart Rate : 60 * Resp Rate : 12 * Systolic BP (mmHg) : 102 * Diastolic BP (mmHg) : 60 * Mean BP (mmHg) : 75 * O2 Saturation (%) : 99 Hospital Vital Signs from 01/14/2015 12:15 PM:* Heart Rate : 61 * Resp Rate : 11 * Systolic BP (mmHg) : 104 * Diastolic BP (mmHg) : 54 * Mean BP (mmHg) : 71 * O2 Saturation (%) : 97 Hospital Vital Signs from 01/14/2015 12:10 PM:* Temp : 97.4 * Heart Rate : 60 * Resp Rate : 16 * Systolic BP (mmHg) : 102 * Diastolic BP (mmHg) : 49 * Mean BP (mmHg) : 69 * O2 Saturation (%) : 97 Hospital Vital Signs from 01/14/2015 9:24 AM:* Weight : 108/ kg * Height : 5/7 ft,in * Temperature : 97.8 F * Pulse : 77 * Respirations : 18 * BP : 123/75 Hospital Vital Signs from 01/14/2015 9:00 AM:* Weight : 109.09/ kg * Height : 5/7 ft,in Results Chemistry from 01/14/2015 9:55 AMPREGNANCY TEST NEGATIVE (NEGATIVE ) Problems Encounter Diagnosis * Fall Risk Comment:Problem resolved by [facility] Work[employer] upon Discharge, Status: Resolved. Encounters Encounter Diagnosis * Fall Risk Comment:Problem resolved by [employer] Work[employer] upon Discharge, Status: Resolved. Plan of Care Follow-up Appointments from 01/14/2015 1:26 PM:* #1 Office appointment: : Dr. Vance * #1 Date/Time : 01/22/2015 9:15 AM * Address # 1 : [facility] [place]- or Procedures * Completed Arthroscopy of Knee, Right, by MD BERNARDO VANCE, on 01/14/2015 11: 26 AM Immunizations No immunizations administered or ordered. Hospital Course Hospital Discharge Instructions How to care for yourself at home from 01/14/2015 1:26 PM:* Discharge Activity : Activity as tolerated,Do not engage in sports, heavy work or heavy lifting until your physician gives permission,No Tub Bath * Do not drive or operate machinery for: : 24 hours and as long as taking prescribed pain medication * Discharge Diet : As before hospitalization,Diet as tolerated * Discharge Diet: : avoid spicy, heavy, and greasy foods today. * Discharge Wound Care : Keep dressings dry,Notify your physician if the following develops: redness, swelling, drainage or color of drainage changes, odor or increased pain. * Remove dressing in: : 48 hours * Call your doctor if: : Fever over 101 F or severe chills,Chest pain or other unexplained symptoms,Tingling or numbness develops,You have persistent or worsening symptoms * Specific Discharge Teaching Instructions provided: : Yes * Specific Discharge Teaching Instructions Reviewed: : Other * Discharge on Warfarin : No Allergies, Adverse Reactions, Alerts * Contrast causes Topical Iodine is the problem. * iodine causes Hives. * Sulfa (Sulfonamide Antibiotics) causes Hives. * No Latex Allergy. * No Known Food Allergies. Medication Medication reconciliation has not been performed.
--- OUTSIDE RECORDS SUMMARY | 2016-08-04 14:02 | XMS REPORT | Summary of Care ---
Author Author Davin Dixon M.D. Organization Unknown Address [address] [place], [place] [id number] Phone Unavailable Care Team Providers Care Dancer Or Choreographer Name Role Phone Davin Dixon M.D. Unavailable Unavailable Davin Dixon PP Unavailable Unavailable Unavailable Functional Status Functional Status Health Issues* Name Dates Details Functional status health issues are not documented Status: Cognitive Status Health Issues* Name Dates Details Cognitive status health issues are not documented Status: Problems Name Dates Details Amenorrhea (626.0, N91.2) Status: Active Abdominal cramping (789.00, R10.9) Status: Active Rectal bleeding (569.3, K62.5) Status: Active Gastroenteritis (558.9, K52.9) Status: Active Lower back pain (724.2, M54.5) Status: Active Tonsillar hypertrophy (474.11, J35.1) Status: Active Cerumen impaction (380.4, H61.20) Status: Active Rash (782.1, R21) Status: Active Abdominal pain, epigastric (789.06, R10.13) Status: Active Irritable bowel syndrome (564.1, K58.9) Status: Active 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, 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 Abnormal liver enzymes (790.5, R74.8) Status: Active Pre-procedural examination (V72.84, Z01.818) Status: Active Cervicalgia (723.1, M54.2) Status: Active Memory loss (780.93, R41.3) Status: Active Chest pain (786.50, R07.9) Status: Active Medications Name Dates Details Azithromycin [...] Resolved Procedures Procedure Dates Details History of Duodenoscopy With Biopsy History of Laparos Large Intest Laser Vaporization Endometriotic Tissue History of Cholecystectomy History of Ovarian Cystectomy History of Appendectomy Procedures not documented Immunization Name Dates Details Immunizations not documented Family History Unknown Family Member* Name Dates Details Family history of Sick Sinus Syndrome Comments: Family History Status: Active Family history of Stroke Syndrome (V17.1) Comments: Family History Status: Active Family history of Alcohol Abuse Comments: Family History Status: Active Family history of Tuberculosis Comments: Family History Status: Active Family history of Coronary Arteriosclerosis (V17.49) Comments: Family History Status: Active Family history of Diabetes Mellitus (V18.0) Comments: Family History Status: Active Social History [...]
--- OUTSIDE RECORDS SUMMARY | 2016-08-04 14:02 | XMS REPORT | Summary of Care ---
Author Author Eran Peters, Natalie Redding Organization Unknown Address [address] [place], [place] [phone] Phone Unavailable Care Team Providers Care Tablet Making Machine Operator Name Role Phone Davin Dixon M.D. [...] ml/min (Better) Range: >60 EST GFR, NON-AFR [place]RA[place] >60 ml/min (Better) Range: >60 Comments: EST GFR is reported in ml/min per 1.73 m2 of body surface area. For -Burmese, please multiple result by 1.2.----- BUN:CREATININE RATIO [...]
--- OUTSIDE RECORDS SUMMARY | 2016-08-04 14:02 | XMS REPORT | Summary of Care ---
Author Author Roderick Veras M.D. Unknown Address [address] [place], [place] [phone] Phone Unavailable Care Team Providers Care Correctional Program Officer Name Role Phone nEzo Maradiaga M.D. Unavailable Unavailable Davin Dixon M.D. Unavailable [...] Left ankle sprain (845.00, S93.402A) Status: Active Medications Name Dates Details Multi-Vitamins Oral Tablet TAKE 1 TABLET DAILY. Davin Dixon M.D.* Started 12-Apr-2015 ActiveSertraline HCl - 50 MG Oral Tablet TAKE 1 TABLET DAILY. * Quantity: 30 Refills: 3 Davin Dixon M.D.* Started 12-Apr-2015 ActiveClonazePAM 0.5 MG Oral Tablet TAKE 1 TABLET Bedtime PRN * Quantity: 30 Refills: 0 Davin Dixon M.D.* Started 12-Apr-2015 ActiveSUMAtriptan Succinate 50 MG Oral Tablet Take 1 tablet at onset of headache, may repeat 1 time only in 2 hours * Quantity: 6 Refills: 3 Davin Maradiaga M.D.* Started 28-May-2015 ActiveFLUoxetine HCl - 10 MG Oral Capsule TAKE 1 CAPSULE BY MOUTH EVERY MORNING FOR 7 DAYS THEN TAKE 2 CAPSULESEVERY MORNING * Quantity: 60 Refills: 3 Davin Maradiaga M.D.* Started 28-May-2015 Active Allergies and Adverse Reactions Name Dates [...] History of Knee Surgery ORTHO KNEE LEFT Ordered:17-May-2015 Immunization Name Dates [...] smoker Vital Signs Date Test Result Details 04-Jul-2015 17:34 BP Systolic 124 mm[Hg] Status: [...] Instructions * Instructions not documented Encounters Appointment; Roderick Veras Encounter Diagnosis: Problem not [...]
--- OUTSIDE RECORDS SUMMARY | 2016-08-04 14:02 | XMS REPORT | Summary of Care ---
Author Author Davin Dixon M.D. Organization Unknown Address [address] [place], [place] [phone] Phone Unavailable Care Team Providers Care Manager Data Warehouse Name Role Phone Davin Dixon M.D. Unavailable [...] Endometriotic Tissue History of Duodenoscopy With Biopsy SERUM TEST 8020 Ordered:16-Jul-2014 Immunization Name Dates Details Immunizations not documented [...] not documented On 27-Feb-2014 10:00 Appointment; Davin Dxion Encounter Diagnosis: Problem not documented On 13-Feb-2014 [...]
--- OUTSIDE RECORDS SUMMARY | 2016-08-04 14:02 | XMS REPORT | Summary of Care ---
Author Author Davin Dixon M.D. Organization Unknown Address Unknown Phone Unavailable Care Team Providers Care Mine Administrator Supervisor Name Role Phone Davin Dixon M.D. 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 Start 29-Jun-2016 Active LevoFLOXacin in D5W 500 MG/100ML Intravenous Solution IV x 1 * Quantity: 1 Refills: 0 Davin Dixon M.D. * Start 03-Aug-2016 Active 100 ML Flex Cont Ondansetron HCl - 4 MG/2ML Injection Solution 8 mg Zofran IV x 1 * Quantity: 2 Refills: 0 Davin Dixon M.D. * Start 03-Aug-2016 Active 2 ML Vial Normal Saline Flush 0.9 % Intravenous Solution 1 liter NS IV x 1 * Quantity: 1000 Refills: 0 Davin Dixon M.D. * Start 03-Aug-2016 Active Allergies and Adverse Reactions Name Dates [...] History of Knee Arthroscopy With Limited Synovectomy Comprehensive Metabolic Panel 1212 Ordered: 03-Aug-2016 CBC w/ Auto Diff 7150 Ordered: 03-Aug-2016 Urinalysis, Reflex to Microscopic or Culture PRN 8005 Ordered: 03-Aug-2016 XRay ABD Acute (Flat, Upright & PA Chest) Ordered: 03-Aug-2016 ORTHO KNEE LEFT Ordered: 09-Jul-2016 Immunization Name [...] smoker Vital Signs Date Test Result Details 03-Aug-2016 11:09 BP Systolic 110 mm[Hg] Status: Comments: Location: ; Position: BP Diastolic 80 mm[Hg] Status: Comments: Location: ; Position: Temperature 37.1 c Status: Heart Rate 115 /min Status: Comments: Location: ; Physical Findings 93 Status: Comments: O2 Saturation 14-Jul-2016 15:49 BP Systolic 136 mm[Hg] Status: Comments: Location: ; Position: BP Diastolic 85 mm[Hg] Status: Comments: Location: ; Position: Heart Rate 88 /min Status: Comments: Location: ; Height 67 in Status: Results Date Description Value Details 03-Aug-2016 11:47 URINE TEST 8010 URINE TEST Negative Range: Negative Comments: Internal Control: Acceptable----- Plan of Care Name Dates Details Planned Observations Planned Goals not documented Interventions Provided Medication Changes* LevoFLOXacin in D5W 500 MG/100ML Intravenous Solution - Start * Normal Saline Flush 0.9 % Intravenous Solution - Start * Ondansetron HCl - 4 MG/2ML Injection Solution - Start Labs/Procedures/Imaging* CBC w/ Auto Diff 7150; To be Done: 03 Aug 2016 * Comprehensive Metabolic Panel 1212; To be Done: 03 Aug 2016 * Urinalysis, Reflex to Microscopic or Culture PRN 8005; To be Done: 03 Aug 2016 * XRay ABD Acute (Flat, Upright & PA Chest); To be Done: 03 Aug 2016 * URINE TEST 8010; Done: Aug 03 2016 11:44AM Instructions Name Dates Details Instructions not documented Encounters Appointment; Davin Vance M.D. Encounter Diagnosis: Problem not documented On 14-Jul-2016 15:30 Appointment; Davin Dixon M.D. Encounter Diagnosis: Problem not documented On 29-Jun-2016 16:00 Appointment; Davin Dixon M.D. Encounter Diagnosis: Problem not documented On 11-Nov-2015 15:15 Appointment; Davin Dixon M.D. Encounter Diagnosis: Problem not documented On 07-Aug-2015 15:15 Appointment; Charles Moreno M.D.|F.A.CMarciSMarci|Lorraine,CARMEN|Lorraine,CARMEN, Encounter Diagnosis: Problem not documented On 02-Aug-2015 07:45 Appointment; Davey, Shayna Encounter Diagnosis: Problem not documented On 02-Aug-2015 [...]
--- OUTSIDE RECORDS SUMMARY | 2016-08-04 14:02 | XMS REPORT | Summary of Care ---
Author Author Davin Dixon M.D. Organization Unknown Address [address] [place], [place] [phone] Phone Unavailable Care Team Providers Care Press Officer Name Role Phone Davin Dixon M.D. Unavailable [...] 1.73 m2 of body surface area. For -Montenegrin, please multiple result by 1.2.----- BUN:CREATININE RATIO [...]
--- OUTSIDE RECORDS SUMMARY | 2016-08-04 14:02 | XMS REPORT | Summary of Care ---
Author Author Agustina Vital APRN Organization Unknown Address [address] [place] [id number] Phone Unavailable Care Team Providers Care Clinical Office Technician Name Role Phone Enzo Maradiaga M.D. Unavailable Unavailable Davin Dixon M.D. [...]
--- NOTE | 2016-08-04 14:03 | NUR ---
ADMISSION PT ADMITTED TO ROOM 107. PT ARRIVED VIA WHEELCHAIR. PT SETTLED INTO BED AT THIS TIME.
--- OUTSIDE RECORDS SUMMARY | 2016-08-04 14:03 | XMS REPORT ---
Author Linsey Garvin [facility] eClinicalWorks Address Unknown Phone Unavailable Care Team Providers Care Cast Shell Grinder Name Role Phone Linsey oMon Unavailable Allergies No Known Allergies Problems Problem Type Condition Code Onset Dates Condition Status Assessment Borderline personality disorder F60.3 Active Assessment Grief F43.20 Active Assessment Bipolar 1 disorder F31.9 Active Assessment Anxiety F41.9 Active Medications No Known Medications Procedures Procedure Coding System Code Date Behavior Assessment, Initial CPT-4 15399 Feb 03, 2016 Results No Known Results Summary Purpose eClinicalWorks Submission
--- OUTSIDE RECORDS SUMMARY | 2016-08-04 14:03 | XMS REPORT | Summary of Care ---
Author Author Davin Dixon M.D. Organization Unknown Address [address] [place], [place] [id number] Phone Unavailable Care Team Providers Care Inspector Canned Food Reconditioning Name Role Phone Davin Dixon M.D. Unavailable [...] of drug dependence/abuse (304.63, F19.21) Status: Active Anxiety (300.00, F41.9) Status: Active Depression (311, F32.9) Status: Active Suppressed , with delivery (676.51, O92.5) Status: Active Medications Name Dates Details Multi-Vitamins [...] smoker Vital Signs Date Test Result Details 12-Apr-2015 15:17 BP Systolic 122 mm[Hg] Status: BP Diastolic 88 mm[Hg] Status: Temperature 36.4 c Status: Heart Rate 91 /min Status: Weight 246 lb Status: O2 SAT 96 % Status: Body Mass Index Calculated 38.53 kg/m2 Status: Body Surface Area Calculated 2.21 m2 Status: Results Date Description Value Details Results not documented Plan of Care Planned Observations* Name Dates Details Planned Goals not documented Goal Planned Encounters* Appointment; Provider: Davin Dixon On 14-May-2015 10:30 * Appointment; Provider: Davin Vance On [...]
--- OUTSIDE RECORDS SUMMARY | 2016-08-04 14:03 | XMS REPORT ---
Author Author GENERATED, SYSTEM Organization Unknown Address Unknown Phone Unavailable Care Team Providers Care Electric Motor And Generator Assembler Name Role Phone MD FRANKIE, [facility] [phone] Reason For Visit Chief Complaint N/V/D BACK NECK PAIN Social History Functional Status Vital Signs Results Chemistry from 04/22/2014 2:17 PMAMYLASE 58 U/L (25-115 U/L) LIPASE 232 U/L (73-393 U/L) TEST NEGATIVE (NEGATIVE ) Hematology from 04/22/2014 2:17 PMWBC 12.4 X10e3/UL H (3.6-11.2 X10e3/UL) RBC 5.42 X10e6/UL H (3.63-4.92 X10e6/UL) HEMOGLOBIN 15.2 G/DL H (11.0-14.3 G/DL) HEMATOCRIT 45.9 % H (31.2-41.9 %) MCV 84.7 FL (79.0-98.0 FL) MCH 28.0 PG (27.0-33.0 PG) MCHC 33.1 G/DL (32.0-36.0 G/DL) RDW 13.6 % (12.3-17.0 %) RDWSD 39.8 (37.1-47.8 ) PLATELET 263 X10e3/UL (159-386 X10e3/UL) MPV 7.8 FL (7.4-10.4 FL) AUTOMATED DIFF PERFORMED SEGS 87.2 % LYMPHOCYTES 6.4 % MONOCYTES 5.9 % EOSINOPHILS 0.1 % BASOPHILS 0.4 % ABSOLUTE NEUTROPHILS 10.80 X10e3/UL H (1.80-7.80 X10e3/UL) ABSOLUTE LYMPHOCYTES 0.80 X10e3/UL L (1.00-3.00 X10e3/UL) ABSOLUTE MONOCYTES 0.70 X10e3/UL (0.30-1.00 X10e3/UL) ABSOLUTE EOSINOPHILS 0.00 X10e3/UL (0.00-0.50 X10e3/UL) ABSOLUTE BASOPHILS 0.10 X10e3/UL (0.00-0.20 X10e3/UL) Urinalysis from 04/22/2014 2:05 PMURINE COLOR DK YELLOW (STRAW/YELL/DK YELL ) URINE APPEARANCE CLOUDY A (CLEAR ) URINE PH 6.0 (5.0-8.0 ) URINE SPECIFIC GRAVITY >1.030 (<=1.005->=1.030 ) URINE GLUCOSE NEGATIVE MG/DL (NEGATIVE MG/DL) URINE BILIRUBIN SMALL A (NEGATIVE ) URINE KETONES NEGATIVE MG/DL (NEGATIVE MG/DL) URINE BLOOD MODERATE A (NEGATIVE ) URINE PROTEIN 30 MG/DL A (NEGATIVE MG/DL) URINE UROBILINOGEN 0.2 EU/DL (0.2-1.0 EU/DL) URINE NITRITES NEGATIVE (NEGATIVE ) *URINE LEUKOCYTES NEGATIVE (NEGATIVE ) MICROSCOPIC EXAM PERFORMED PERFORMED WBC 0-1 /HPF (0-5 /HPF) RBC 5-10 /HPF A (0-1 /HPF) SQUAMOUS EP. CELLS MANY /LPF A (NEG-FEW /LPF) MUCOUS THREADS MANY /LPF A (NEGATIVE /LPF) BACTERIA FEW /HPF A (NEGATIVE /HPF) Problems Encounter Diagnosis No relevant problems exist. Encounters Encounter Diagnosis No relevant problems exist. Plan of Care Procedures No relevant procedures performed. Immunizations No immunizations administered or ordered. Hospital Course Hospital Discharge Instructions Allergies, Adverse Reactions, Alerts * Contrast causes Hives. * Latex Allergy has not been assessed. * IV Contrast Allergy has not been assessed. Medication Medication reconciliation has not been performed.
--- OUTSIDE RECORDS SUMMARY | 2016-08-04 14:03 | XMS REPORT ---
Author Author GENERATED, SYSTEM Organization Unknown Address Unknown Phone Unavailable Care Team Providers Care Semiconductor Equipment Technician Name Role Phone MD FRANKIE, [facility] [phone] Reason For Visit Reason for Visit from [...] 9:15 AM * Address # 1 : [facility]: [facility] [place], [place]- or Procedures * Completed Arthroscopy of [...]
--- OUTSIDE RECORDS SUMMARY | 2016-08-04 14:03 | XMS REPORT | Summary of Care ---
Author Author Davin Dixon M.D. Organization Unknown Address [address] [place], [place] [id number] Phone Unavailable Care Team Providers Care Director Of Premium Seat Sales Name Role Phone Davin Dixon PP Unavailable [...] ml/min (Better) Range: >60 EST GFR, NON-AFR JORDANIAN >60 ml/min (Better) Range: >60 Comments: EST GFR is reported in ml/min per 1.73 m2 of body surface area. For -Citizen Of [place], please multiple result by 1.2.----- GLUCOSE 89 [...] Range: Negative 06-Jan-2014 13:11 Celiac Disease Comprehensive [id number] Comments: TESTING PERFORMED AT: [BN] [facility], [address] [place] [address], [address], PHONE: [phone], SPORTS BOOK WRITER: HOWIE ASIF MDTESTING PERFORMED AT: [DA] [facility], [address] [place] [address], [place], [address], PHONE: [phone], SPORTS BOOK WRITER: KIRIT FUNEZ MD DEAMIDATED GLIADIN ABS, IGA [...]
--- OUTSIDE RECORDS SUMMARY | 2016-08-04 14:03 | XMS REPORT | Summary of Care ---
Author Author Davin Dixon M.D. Organization Unknown Address [address] [place], [place] [phone] Phone Unavailable Care Team Providers Care Computer Operations Analyst Name Role Phone Davin Dixon M.D. Unavailable [...] ml/min (Better) Range: >60 EST GFR, NON-AFR VINCENTIAN >60 ml/min (Better) Range: >60 Comments: EST GFR is reported in ml/min per 1.73 m2 of body surface area. For -Swedish, please multiple result by 1.2.----- BUN:CREATININE RATIO [...]
--- OUTSIDE RECORDS SUMMARY | 2016-08-04 14:03 | XMS REPORT | Summary of Care ---
Author Author Davin Dixon M.D. Organization Unknown Address [address] [place], [place] [id number] Phone Unavailable Care Team Providers Care Service Aide Name Role Phone Davin Dixon M.D. Unavailable [...]
--- OUTSIDE RECORDS SUMMARY | 2016-08-04 14:03 | XMS REPORT | Summary of Care ---
Author Author Davin Dixon M.D. Organization Unknown Address [address] [place], [place] [phone] Phone Unavailable Care Team Providers Care Tongue Trimmer Name Role Phone Davin Dixon M.D. Unavailable [...] M25.562) Status: Active Medications Name Dates Details Multi-Vitamins [...] of Duodenoscopy With Biopsy History of Appendectomy Procedures not documented Immunization [...] smoker Vital Signs Date Test Result Details 14-May-2015 10:31 BP Systolic 122 mm[Hg] Status: [...] Planned Encounters* Appointment; Provider: Davin Maradiaga On 28-May-2015 10:00 * Appointment; Provider: Davin Vance On 14-Jan-2015 08:00 * Appointment; Provider: Schedule Radiology On 05-Dec-2014 09:00 Instructions * Instructions not documented Encounters Appointment; Davin Dixon Encounter Diagnosis: Problem not documented On 14-May-2015 10:30 Appointment; Davin Dxion Encounter Diagnosis: Problem not documented On 12-Apr-2015 [...]
--- OUTSIDE RECORDS SUMMARY | 2016-08-04 14:03 | XMS REPORT | Summary of Care ---
Author Author Alia Peters, Efrain Giraldo Organization Unknown Address [address] [place], [place] [id number] Phone Unavailable Care Team Providers Care Bead Wire Insulator Name Role Phone Davin Dixon PP Unavailable [...] Diff 7150 Comments: DOS 01/14/15 Dr. Vance [facility] WBC 10.2 K/uL (Better) Range: 4.5-11.0 RBC [...] ml/min (Better) Range: >60 EST GFR, NON-AFR BULGARIAN >60 ml/min (Better) Range: >60 Comments: EST GFR is reported in ml/min per 1.73 m2 of body surface area. For -Russian, please multiple result by 1.2.----- GLUCOSE 101 [...]
--- OUTSIDE RECORDS SUMMARY | 2016-08-04 14:04 | XMS REPORT | Summary of Care ---
Author Author Davin Dixon M.D. Organization Unknown Address [address] [place], [place] [phone] Phone Unavailable Care Team Providers Care Commissioner Of Internal Revenue Name Role Phone Davin Dixon M.D. Unavailable [...] right, with routine healing, subsequent encounter (V54.16, S82.369T) Status: Active Right knee pain (719.46, M25.561) [...] Diff 7150 Comments: DOS 01/14/15 Dr. Vance [facility] WBC 10.2 K/uL (Better) Range: 4.5-11.0 RBC [...] ml/min (Better) Range: >60 EST GFR, NON-AFR ARGENTINE >60 ml/min (Better) Range: >60 Comments: EST GFR is reported in ml/min per 1.73 m2 of body surface area. For -Chilean, please multiple result by 1.2.----- GLUCOSE 101 [...] Diagnosis: Problem not documented On 09:00 Appointment; Daivn Dixon Encounter Diagnosis: Problem not [...]
--- OUTSIDE RECORDS SUMMARY | 2016-08-04 14:04 | XMS REPORT | Continuity of Care Document ---
Author Author [facility] Organization [facility] Address Unknown Phone Unavailable Allergies Active Description Code Type Severity Reaction Onset Reported/Identified Relationship to Patient Clinical Status Yes gluten gluten Drug Allergy Severe GI UPSET, DIARRHEA 02/28/2013 Yes iodine iodine Drug Allergy Mild RASH 02/28/2013 Yes Sulfa (Sulfonamide Antibiotics) Sulfa (Sulfonamide Antibiotics) Drug Allergy Mild HEAD TO TOE HIVES 02/28/2013 Medications Problems Date Dx Coded Attending Type Code Diagnosis Diagnosed By 03/31/2012 Bora Jesus DO 784.0 HEADACHE 2013 Ronald Parks MD 665.41 HIGH VAGINAL LACER-DELIV 2013 Ronald Parks MD V22.1 SUPERVIS OTH NORMAL PREG 2013 Ronald Parks MD V27.0 DELIVER-SINGLE LIVEBORN Procedures Code Description Performed By Performed On 73.09 ARTIF RUPT MEMBRANES NEC Ronald Parks MD 2013 73.4 MEDICAL INDUCTION LABOR Ronald Parks MD 2013 73.59 MANUAL ASSIST DELIV Ronald Jacob MD 2013 Results Test Result Range CBC - 11/18/11 08:00 MEAN CELL HGB 31.2 pg 27.0-33.0 MEAN CELL HGB CONCENTRATION 34.0 g/dl 32.0-36.0 MEAN CELL VOLUME 91.9 fl 80.0-100.0 RED BLOOD CELL 4.10 m/cumm 4.00-6.00 RED CELL DISTRIBUTION WIDTH 14.5 % 11.0- 15.6 WHITE BLOOD CELL 8.5 k/cumm 5.0-10.0 HEMOGLOBIN 12.8 gm/dL 12.0-16.0 HEMATOCRIT 37.6 % 37.0-47.0 PLATELET COUNT 169 k/cumm 150-450 CORD VENOUS BLOOD GAS - 11/18/11 19:00 VENOUS CORD BLOOD BASE EXCESS -3.5 meq/L -5.8-0.7 COMMENT VENOUS VENOUS CORD BLOOD HCO3 22.3 meq/L 17.4- 25.4 VENOUS CORD BLOOD PCO2 43 mm Hg 28-57 VENOUS CORD BLOOD PH 7.34 7.23-7.46 VENOUS CORD BLOOD PO2 26 mm Hg 15-42 VENOUS CORD BLOOD O2 SAT 59 % 14-75 CORD ARTERIAL BLOOD GAS - 11/18/11 19:00 ARTERIAL CORD BLD BASE EXCESS -4.1 meq/L -7.6-1.3 COMMENT ARTERIAL ARTERIAL CORD BICARBONATE 24.2 meq/L 16.0 -27.1 ARTERIAL CORD BLOOD PCO2 57 mm Hg 32-69 ARTERIAL CORD BLOOD PH 7.25 7.14-7.40 ARTERIAL CORD BLOOD PO2 15.1 mm Hg 8-33 ARTERIAL CORD BLOOD O2 SAT 21 % 5-59 URINALYSIS, ROUTINE - 02/28/13 11:23 UA LEUKOCYTE ESTERASE DIPSTICK 1+ NEGATIVE UA NITRITE DIPSTICK NEGATIVE NEGATIVE UA PROTEIN DIPSTICK 1+ NEGATIVE UA GLUCOSE DIPSTICK NEGATIVE NEGATIVE UA KETONE DIPSTICK 3+ NEGATIVE UA UROBILINOGEN DIPSTICK 2+ NORMAL UA BILIRUBIN DIPSTICK POSITIVE NEGATIVE UA BLOOD DIPSTICK NEGATIVE NEGATIVE UA SPECIFIC GRAVITY 1.025 1.015-1.025 UR PH 5.0 5.0-7.0 WET MOUNT - 04/10/13 23:09 Uncategorized GONORRHOEA DNA BY PCR - CHLAMYDIA DNA BY PCR - 04/10/13 23:09 Uncategorized WET MOUNT - 04/20/13 19:45 Uncategorized CBC - 08/07/13 08:00 MEAN CELL HGB 29.3 pg 27.0-33.0 MEAN CELL HGB CONCENTRATION 33.8 g/dL 32.0-37.0 MEAN CELL VOLUME 86.7 fl 80.0-100.0 RED BLOOD CELL 4.57 m/cumm 4.00-6.00 RED CELL DISTRIBUTION WIDTH 14.9 % 11.0- 15.6 WHITE BLOOD CELL 10.2 k/cumm 5.0-10.0 HEMOGLOBIN 13.4 gm/dL 12.0-16.0 HEMATOCRIT 39.6 % 37.0-47.0 PLATELET COUNT 232 k/cumm 150-400 CORD VENOUS BLOOD GAS - 08/07/13 18:32 VENOUS CORD BLOOD BASE EXCESS -1.5 meq/L -5.8-0.7 COMMENT VENOUS VENOUS CORD BLOOD HCO3 23.7 meq/L 17.4- 25.4 VENOUS CORD BLOOD PCO2 42 mm Hg 28-57 VENOUS CORD BLOOD PH 7.37 7.23-7.46 VENOUS CORD BLOOD PO2 30 mm Hg 15-42 VENOUS CORD BLOOD O2 SAT 69 % 14-75 CORD ARTERIAL BLOOD GAS - 08/07/13 18:32 ARTERIAL CORD BLD BASE EXCESS -0.8 meq/L -7.6-1.3 COMMENT ARTERIAL ARTERIAL CORD BICARBONATE 25.7 meq/L 16.0 -27.1 ARTERIAL CORD BLOOD PCO2 50 mm Hg 32-69 ARTERIAL CORD BLOOD PH 7.33 7.14-7.40 ARTERIAL CORD BLOOD PO2 17.5 mm Hg 8-33 ARTERIAL CORD BLOOD O2 SAT 23 % 5-59 HEMOGLOBIN - 08/07/13 22:33 MEAN CELL VOLUME 86.0 fl 80.0-100.0 HEMOGLOBIN 12.7 gm/dL 12.0-16.0 URINALYSIS, ROUTINE - 11/12/14 12:33 UA LEUKOCYTE ESTERASE DIPSTICK TRACE NEGATIVE UA NITRITE DIPSTICK NEGATIVE NEGATIVE UA PROTEIN DIPSTICK 2+ NEGATIVE UA GLUCOSE DIPSTICK NEGATIVE NEGATIVE UA KETONE DIPSTICK TRACE NEGATIVE UA UROBILINOGEN DIPSTICK NORMAL NORMAL UA BILIRUBIN DIPSTICK 1+ NEGATIVE UA BLOOD DIPSTICK 3+ NEGATIVE UA SPECIFIC GRAVITY 1.025 1.015-1.025 UR PH 6.0 5.0-7.0 Microbiology UA MICROSCOPIC - 11/12/14 12:33 UA BACTERIA 2+ NEGATIVE UA EPITHELIAL CELLS 4+ epi/hpf 0 - 1+ UA RBC PACKED FIELD rbc/hpf 0 - 3 UA VOLUME FOR EXAM 12.0 mL (12mL STD) UA WBC 10-20 wbc/hpf 0 - 5 UR TEST - 11/12/14 12:35 UR TEST POSITIVE NEGATIVE Microbiology HCG QUANT INTACT - 11/12/14 13:05 HCG QUANT INTACT 169 mIU/mL Microbiology CHEM/HEM PROFILE-BEDSIDE - 11/12/14 13:11 POTASSIUM 4.0 mmol/L 3.5-5.3 METHOD Bedside ANION GAP 17 mmol/L 10-20 METHOD Bedside GLUCOSE 85 mg/dL 70-99 BLOOD UREA NITROGEN 8 mg/dL 7-20 CREATININE 0.8 mg/dL 0.6-1.0 HEMOGLOBIN 13.6 gm/dL 12.0-16.0 HEMATOCRIT 40.0 % 37.0-47.0 SODIUM 139 mmol/L 135-148 CHLORIDE 103 mmol/L 98-110 CARBON DIOXIDE 23 mmol/L 21-32 CALCIUM IONIZED 4.6 mg/dL 4.5-5.3 Microbiology UR - 08/02/16 07:20 UR NEGATIVE NEGATIVE URINALYSIS (CULTURE PRN) - 08/02/16 07:20 *URINE APPEARANCE SL CLOUDY CLEAR *URINE BILIRUBIN NEGATIVE NEGATIVE *URINE BLOOD LARGE NEGATIVE *URINE GLUCOSE 100 NEGATIVE *URINE KETONES TRACE NEGATIVE *URINE LEUKOCYTES LARGE NEGATIVE *URINE NITRITES POSITIVE NEGATIVE URINE PH 5.0 5.0-8.0 *URINE PROTEIN >300 NEGATIVE URINE SPECIFIC GRAVITY 1.025 <=1.005->= 1.030 *URINE UROBILINOGEN 4.0 0.2-1.0 *URINE COLOR ORANGE STRAW/YELL/DK YELL URINE MICROSCOPIC - 08/02/16 07:20 WBC PACKED FIELD /[HPF] 0-5 RBC 0-1 /[HPF] 0-1 MICROSCOPIC EXAM PERFORMED PERFORMED NRG SQUAMOUS EP. CELLS FEW /[LPF] NEG-FEW BACTERIA FEW /[HPF] NEGATIVE COMMENT See Below NRG CULTURE URINE - 08/02/16 07:20 CULTURE URINE >100,000 cfu/ml NRG ISOLATE1 - 08/02/16 07:20 ORGANISM Escherichia coli NRG Ampicillin >=32 NRG Ampicillin/sulbactam >=32 NRG Cefazolin <=4 NRG Cefepime <=1 NRG Ceftazidime <=1 NRG Ceftriaxone <=1 NRG Ertapenem <=0.5 NRG ESBL Neg NRG Gentamicin <=1 NRG Levofloxacin <=0.12 NRG Meropenem <=0.25 NRG Nitrofurantoin <=16 NRG Piperacillin/tazobactam <=4 NRG Tobramycin <=1 NRG Trimethoprim/Sulfa <=20 NRG Aztreonam <=1 NRG Encounters ACCT No. Visit Date/Time Discharge Status Pt. Type Provider Facility Loc./Unit Complaint [id number] 11/12/2014 12:12:00 2014 15:34:00 DIS Emergency Ravi JEAN-BAPTISTE, Efrain [facility] W.MARNI [id number] 2013 07:32:00 2013 11:35:00 DIS Inpatient Kasey JEAN-BAPTISTE, Ronald W.5WH [id number] 08/01/2013 21:03:00 2013 21:54:00 DIS Emergency Kasey JEAN-BAPTISTE, [facility] W.2WOBED [id number] 04/20/2013 18:24:00 2013 20:38:00 DIS Emergency Kasey JEAN-BAPTISTE, [facility] W.2WOBED [id number] 04/10/2013 22:17:00 2013 01:05:00 DIS Emergency Kasey JEAN-BAPTISTE, [facility] W.2WOBED [id number] 02/28/2013 10:54:00 2012 13:31:00 DIS Emergency Dilma JEAN-BAPTISTE, [facility] W.EDN [id number] 03/31/2012 19:29:00 2012 23:07:00 DIS Emergency Ann Marie ASHLEY, [facility] W.EDS [id number] 11/18/2011 06:52:00 2011 14:00:00 DIS Inpatient Kasey JEAN-BAPTISTE, [facility] W.3WH
--- OUTSIDE RECORDS SUMMARY | 2016-08-04 14:04 | XMS REPORT | Summary of Care ---
Author Author Davin Dixon M.D. Organization Unknown Address Unknown Phone Unavailable Care Team Providers Care Hooker Operator Name Role Phone Davin Dixon M.D. [...] Provider: Davin Vance M.D. On 02-Jul-2016 14:00 Interventions Provided Medication Changes* Clobetasol Propionate 0.05 % External Cream - Stop * Sertraline HCl - 50 MG Oral Tablet - Stop * Sucralfate 1 GM/10ML SUSP - Stop Instructions Name Dates Details Instructions not documented [...]
[2016-08-04] MEDS ORDERED: KETOROLAC 30mg/ml INJECTION IV PRN (14:15)
[2016-08-04] MEDS ORDERED: ONDANSETRON 4mg/2ml INJECTION IV PRN (14:15)
[2016-08-04] MEDS ORDERED: METOCLOPRAMIDE 10mg/2ml INJECTION IV PRN (14:30)
[2016-08-04] MEDS ORDERED: KETO10TA2 PO (14:44)
[2016-08-04] MEDS ORDERED: PHEN-742 PO (14:44)
[2016-08-04] MEDS ORDERED: PHEN95TA25 PO (14:44)
[2016-08-04] MEDS ORDERED: HYDR50CA5 PO (14:44)
[2016-08-04] MEDS ORDERED: TRAZ-173 PO (14:44)
[2016-08-04] MEDS ORDERED: ONDA4TAB7 PO (14:44)
[2016-08-04] MEDS ORDERED: VENL75CA60 PO (14:44)
[2016-08-04] MEDS ORDERED: LEVO500T63 PEG (14:44)
[2016-08-04] MEDS: NORMAL SALINE 1,000 ML IV SCH ×2 (15:31→18:59)
[2016-08-04] MEDS: MORPHINE SULFATE 4 MG SYRINGE IV PRN ×2 (15:41→20:39)
[2016-08-04] MEDS ORDERED: PROPOFOL 500mg 50 ML IV ONE (16:08)
[2016-08-04] MEDS ORDERED: FENTANYL 250mcg/5ml INJECTION ONE (16:08)
--- NOTE | 2016-08-04 16:42 | ANESPREOP ---
Anesthesia Record Date and Time DATE: 08/04/16 TIME: 16:40 Proposed Surgical Procedure NPO since: 829 Allergies: Coded Allergies: Sulfa (Sulfonamide Antibiotics) (Verified Allergy, Intermediate, HIVES, 08/04/16) iodine (Verified Allergy, Intermediate, RASH, 08/04/16) WITH TOPICAL APPLICATION Ht/Wt/BMI Height: 5 ' 7.00 " Weight: 117.600 kg BMI: 40.6 kg/m2 Vital Signs Date Time Temp Pulse Resp B/P Pulse Ox O2 Delivery O2 Flow Rate FiO2 08/04/16 15:41 16 08/04/16 14:23 99.3 93 130/69 95 Room Air Medications Inpatient Medications Current Medications Medications (Trade) Dose Ordered Sig/Magalie Start Time Stop Time Status Last Admin Dose Admin Ketorolac Tromethamine (Toradol) 30 mg Q6H PRN 08/04/16 14:15 08/09/16 14:14 08/04/16 15:32 30 MG Morphine Sulfate (Morphine) 1-4MG Q1H PRN 08/04/16 14:15 08/04/16 15:41 4 MG Ondansetron HCl 4 mg 4 mg Q4H PRN 08/04/16 14:15 08/04/16 15:31 4 MG Sodium Chloride (Normal Saline IV) 1,000 ml @ 100 mls/hr Q10H 08/04/16 14:15 08/04/16 15:31 100 MLS/HR Metoclopramide HCl (REGLAN Inj) 10 mg Q6H PRN 08/04/16 14:30 Hydroxyzine Pamoate (Hydroxyzine Pamoate) 50 Mg Capsule, 1 CAP PO PRN PRN for ANXIETY, (Reported) Last Taken: on Unknown Date & Time Ketorolac Tromethamine (Ketorolac Tromethamine) 10 Mg Tablet, 1 TAB PO QID PRN for PAIN, (Reported) Last Taken: on Unknown Date & Time Levofloxacin (Levaquin) 500 Mg Tablet, 1 TAB PEG BID, (Reported) Last Taken: on 08/04/16 0900 Ondansetron (Zofran Odt) 4 Mg Tab.rapdis, 4 MG PO Q6HR PRN for NAUSEA, (Reported) Oral disintegrating tablet Last Taken: on 08/04/16 0630 Phenazopyridine HCl (Azo Standard) 95 Mg Tablet , 95 MG PO TID, (Reported) Last Taken: on 08/04/16 0900 Phentermine HCl (Phentermine HCl) 30 Mg Capsule , 1 CAP PO QAM, (Reported) Last Taken: on Unknown Date & Time Trazodone HCl (Trazodone HCl) 100 Mg Tablet, 100 MG PO PRN, (Reported) Take 1 tablet, by mouth, 2 times a day. Last Taken: on Unknown Date & Time Venlafaxine HCl (Effexor Xr) 75 Mg Cap.er.24h, 75 MG PO DAILY, (Reported) Last Taken: on 08/04/16 0900 Currently on Beta Janki: No Medical/Surgical History Anesthesia PMH: Reports: Asthma ( A KID), Obesity, Denies: *Hypertension, *FL , Blood Transfusion Reac, CHF, COPD, CVA/Stroke/TIA, Cancer, Seizures Smoking Status: Current some day smoker (occassionaly smoke) Substance Use Type: marijuana (daily, last use last night) Alcohol Intake: rarely Past Surgical History Orthopedic Surgeries: Yes - RIGHT KNEE SCOPE Abdominal Surgeries: Yes - APPY, RAQUEL Genitourinary Surgeries: No Cardiac Surgeries: No Endocrine Surgeries: No Reproductive Surgeries: - ENDOMETRIOSIS, DYE IN FALLOPEAN TUBE, CYST ON FALLOPEAN TUBE Neurological Surgeries: No Ear Surgeries: No Nose Surgeries: No Throat Surgeries: Yes - TONSILS Other Surgeries: Yes - WISDOM TEETH, EGD, C-SCOPE Anesthesia Adverse Reactions: FOUND none Physical Exam Respiratory: Bilat breath sounds equal, Lungs clear Cardiovascular: FOUND Regular rate, rhythm Airway Assessment Mallampati Score: II TMD: 3 Fingerbreadths Neck Extension: Fair Overall Assessment: No Airway Concerns ASA: 2, E Plan Anesthesia Plan: LMA, GETA Discussion Discussed risks/options/alternatives of anesthesia and questions answered. Patient consents. Nursing pain assessment noted. Attestation Statement Prior to the delivery of any anesthetic medication, I examined the patient, developed the plan, obtained the patient's consent and discussed the risk and benefits of the procedure with the patient/guardian. HAYLEE SPENCE CRNA August 04, 2016 16:42
[2016-08-04] MEDS ORDERED: FAMOTIDINE 20 MG in NORMAL SALINE 50 ML IV ONE (16:45)
[2016-08-04] MEDS ORDERED: IOHEXOL 350 MG/ML 100ml INJECTION ONE (16:59)
[2016-08-04] MEDS ORDERED: GENTAMICIN 80 MG/2 ML INJECTION ONE (16:59)
[2016-08-04] MEDS ORDERED: MIDAZOLAM 2mg/2ml INJECTION IV ONE (17:00)
[2016-08-04] MEDS ORDERED: ONDANSETRON 4mg/2ml INJECTION ONE (17:26)
[2016-08-04] MEDS ORDERED: DEXAMETHASONE 4mg/ml - 1ml INJECTION ONE (17:26)
[2016-08-04] MEDS ORDERED: HYOS-7 SL (18:25)
[2016-08-04] MEDS ORDERED: PHENAZOPYRIDINE 95 MG TABLET PO PRN (18:30)
[2016-08-04] MEDS ORDERED: HYOSCYAMINE 0.125 MG SUBLINGUAL TABLET SL PRN (18:30)
[2016-08-04] MEDS ORDERED: BELLADONNA-OPIUM 16.2-60mg SUPP RECTALLY PRN (18:30)
[2016-08-04] MEDS ORDERED: HYDR-4246 PO (18:35)
[2016-08-04] MEDS: HYDROMORPHONE 2mg/ml INJECTION IV PRN ×3 (18:38→19:06)
--- NOTE | 2016-08-04 19:25 | NUR ---
RETURNED TO ROOM PT RETURNED FROM PACU VIA BED, AMBULATED TO RESTROOM AND BACK TO BED.
--- NOTE | 2016-08-04 20:00 | NUR ---
PRESCRIPTIONS COPIES MADE OF PRESCRIPTIONS AND GIVEN TO SPOUSE TO BE FILLED AT [facility].
--- NOTE | 2016-08-04 20:02 | ANESPO ---
Post-Op Note Date 08/04/16 Time: 20:00 Status Pt Participated in Evaluation: Pt participated in person Vital Signs Date Time Temp Pulse Resp B/P Pulse Ox O2 Delivery O2 Flow Rate FiO2 08/04/16 19:22 97.0 08/04/16 19:20 81 21 110/65 98 Room Air Respiratory Function: Airway patent, Regular respirations Cardiovascular Function: Regular pulse Mental Status: Alert/oriented Pain Level Intensity: 4 Hydration: Taking po fluids Complications during Recovery None apparent Follow-Up Instructions Instructions Per Surgeon HAYLEE SPENCE CRNA August 04, 2016 20:02
--- NOTE | 2016-08-04 20:39 | NUR ---
IV PAIN MEDICATION IV PAIN MEDICATION WAS GIVEN AT THIS TIME,PT ONLY HAD IV PAIN MEDICATION ORDERED POST OPERATIVELY. PT RATED PAIN A 6 OUT OF 10 AND STATED SHE HAD A [address] AND WOULD LIKE THE IV PAIN MEDICATION. NO NAUSEA OR VOMITING NOTED.
--- NOTE | 2016-08-04 21:35 | NUR ---
DISCHARGE SUMMARY PT ALERT AND ORIENTED X3, VITAL SIGNS HAVE REMAINED STABLE ON ROOM AIR, DENIES C/P,N/V AND SOA. PT HAS HAD ADEQUATE URINE OUTPUT. PT PAIN IS CONTROLLED WITH PAIN MEDICATION AND PT WILL FOLLOW UP WITH HER PRESCRIPTION PAIN MEDICATION EN ROUTE TO HOME. DISCHARGE INFORMATION DISCUSSED: S&SX TO REPORT, FOLLOW UP APPOINTMENT WITH DR, ACTIVITIES AND DIET. ALL PT BELONGINGS GATHERED, IV REMOVED-CATHETER TIP INTACT, NO PROBLEMS NOTED. PT TAKEN BY WHEELCHAIR TO ED EXIT.
--- NOTE | 2016-08-05 07:14 | OPNOTEF ---
DATE OF OPERATION 08/04/2016 PREOPERATIVE DIAGNOSIS Left ureteral stone and left hydronephrosis and left renal colic and microhematuria. POSTOPERATIVE DIAGNOSIS Left ureteral stone and left hydronephrosis and left renal colic and microhematuria with left ureteral obstruction. OPERATION PERFORMED Cystoscopy with left retrograde pyelogram and ureteral dilation and ureteroscopic laser lithotripsy and stone basket with insertion of ureteral stent, 6 Omani x 30 cm, under fluoroscopy. SURGEON Howie Berkowitz MD. ANESTHESIA DAVY Viera is a 25-year-old woman who presents with severe left flank pain evaluated by CT scan and showed obstructing upper ureteral stone. The patient showed evidence of hydronephrosis and severe symptoms of renal colic and nausea and vomiting and microscopic hematuria. The patient was brought in to have ureteroscopic stone treatment with laser and removal of the stone and stent insertion. DESCRIPTION OF PROCEDURE The patient was taken to the cystoscopy suite and, under intravenous anesthesia, she was placed in dorsal lithotomy position and prepped and draped in the usual fashion for a cystoscopic procedure. Fluoroscopically, stone in the left proximal ureter was visualized. 21 Omani cystoscope was inserted into the bladder. Bladder is essentially normal with a normal ureteral anatomy. Left ureteral orifice was cannulated with a 5 Omani open-ended ureteral catheter and contrast was injected gently and fluoroscopically followed until the calcification seen on the plain fluoroscopic image was confirmed to be within the ureter. Just distal to the stone is a very narrow segment of the ureter. The ureteral catheter was removed and a 0.035 gauge guidewire was inserted. Stone is tightly obstructing and had some difficulty passing the ureteral guidewire past the stone and into the renal pelvis. After several attempts, it was able to be passed by and curl up in the renal pelvis. Cystocope was then removed over the guidewire and a 7 Omani high-definition ureteroscope was loaded and advanced over the guidewire into the bladder and attempts were made to advance into the ureter. However, ureteral orifice was too narrow to accept the 7 Omani ureteroscope. Therefore, ureteroscope was removed and over the guidewire ureteral dilator with ureteral access sheath was placed and advanced under fluoroscopy. We were able to dilate the ureter and advance the sheath to the proximal ureter below the ureteral stone. The obturator and guidewire was removed and 7 Omani high-definition ureteroscope was placed into the access sheath and advanced under direct vision until the stone was visualized. There was a lot of edema below the stone on the ureteral mucosa. Using 374-micron holmium laser fiber at 6.4 park, the stone was fragmented into multiple pieces. We then removed the holmium laser and a 1.8 Omani Olympus basket was placed. Attempts were made to engage the stone. In doing so, stone fragments moved into the kidney. Ureteroscope was advanced into the renal pelvis where two larger pieces of stone were found and retrieved successfully under direct vision. Multiple passes of the scope were used to remove the stones individually. Each individual collecting system was visualized and any significant stone fragment that could be trapped in the basket was trapped, particularly from the lower pole wilson, and removed. Very tiny fragments that were too small to be engaged into the basket were left in or irrigated out. After assuring no significant stone fragment, ureteroscope was removed. A guidewire was replaced back into the renal pelvis through the access sheath and the access sheath was retrieved. Cystocope was back-loaded over the guidewire into the bladder and a 5 Omani open-ended ureteral catheter was advanced into the renal pelvis and retrograde pyelogram taken. It showed dilated collecting system and proximal ureter. Guidewire was then replaced and the catheter removed. Over this guidewire, 6 Omani x 30 cm double pigtail stent was placed into the left renal pelvis. Stent position was confirmed to be satisfactory by fluoroscopic imaging and cystoscopic imaging. Bladder was emptied out and the cystoscope removed. The patient was taken to the recovery room in stable condition. Stone fragments removed will be sent to the lab for stone analysis. It is anticipated that the stent will be retrieved in approximately one week in the office. KAREN
--- NOTE | 2016-08-05 08:50 | DI ---
Indication: ITS.REASON: LT RETROGRADE / STENT INSERTION PROCEDURE: RF RETROGRADE PYELOGRAM LEFT: Encounter: Initial Comparison: None available Findings: 16 working C-arm views were obtained in surgery. There is opacification of the left collecting system via cystoscope. There is mild hydronephrosis with no evidence of obvious filling defects or strictures. Final films show placement of ureteral stent. Total fluoroscopy time: 257 seconds Impression: Working views during left retrograde pyelogram with ureteral stent placement. .
--- OUTSIDE RECORDS SUMMARY | 2016-08-05 11:49 | XMS REPORT | Continuity of Care Document ---
Author Author YEMI [facility] Organization [facility] Address Unknown Phone Unavailable Support Name Relationship Address Phone HOWIE CALDERÓN MD Caregiver [address] [place] [address] Unavailable HOWIE CALDERÓN MD Caregiver [address] [place] [address] Unavailable BERNARDO DAVID Caregiver [address] [place] [address] Unavailable BRICE NEWTON Next Of Kin [id number] [place] [address] Insurance Providers Guarantor Moncho Newton Address [address] [place] [address] Email DENIED 16 Payer [facility] Policy Number [id number] Subscriber's Name Abiodun Newtonmalia Marlon Relationship 01 Spouse Group Number [id number] Advance Directives Directive Response Recorded Date/Time Ordered Resuscitation Status Full Code 08/04/16 2:13pm Resuscitation Documents on File No 08/04/16 2:13pm DPOA for Healthcare Only No 08/04/16 2:13pm Living Will No 08/04/16 2:13pm Problems No problem information available. Medications Current Home Medications Medication Dose Units Route Directions Days Qty Instructions Start Date Hydrocodone/Acetaminophen ([place] 5-325 Tablet) 5-325 Tablet 1 Tab Oral Every 4 Hours for Pain 40 Tablet 08/04/16 Hydroxyzine Pamoate 50 Mg Capsule 1 Cap Oral As Needed as needed for Anxiety 08/04/16 Hyoscyamine Sulfate (Oscimin Sl) 0.125 Mg Tablet 0.125 Mg Sublingual Every 2 Hours as needed for Bladder Spasms 30 Tablet 08/04/16 Ketorolac Tromethamine 10 Mg Tablet 1 Tab Oral Four Times Daily as needed for Pain 08/04/16 Levofloxacin (Levaquin) 500 Mg Tablet 1 Tab Peg Tube Twice A Day 08/04/16 Ondansetron (Zofran Odt) 4 Mg Tab.rapdis 4 Mg Oral Q6h/0300,0900,1500,2100 as needed for Nausea Oral disintegrating tablet 08/04/16 Phenazopyridine Hcl (Azo Standard) 95 Mg Tablet 95 Mg Oral Three Times A Day 08/04/16 Phentermine Hcl 30 Mg Capsule 1 Cap Oral Every Morning 08/04/16 Trazodone Hcl 100 Mg Tablet 100 Mg Oral As Needed Take 1 tablet, by mouth, 2 times a day. 08/04/16 Venlafaxine Hcl (Effexor Xr) 75 Mg Cap.er.24h 75 Mg Oral Daily Social History Social History Problem Response Recorded Date/Time Onset Date Status Reason for Hospitalization Kidney stone 08/04/2016 9:15pm Not Applicable Not Applicable Has the pt used tobacco in the last 12 months No 08/04/2016 2:14pm Not Applicable Not Applicable Query Response Start Date Stop Date Smoking Status Current every day smoker Hospital Discharge Instructions Instructions: Care Instructions: I was in the hospital because (patient own words): "KIDNEY STONE" Discharge Diet: Regular Discharge Activity: as tolerated Follow Up Appointments: Follow-up in [facility] for stent removal on: Please have patient call the office for appointment Pending Lab / Results: Will review at f/u apt Patient Instructions: Drink plenty when urine is bloody Expected Signs/Symptoms: Increased urgency and frequency, burning on urination, flank pain when bladder is full and with urination, straining and increased activity. Intermittent blood in urine especially with increased activity. Notify Physician If: fever >100.5, excessive intractable pain and/or nausea with vomiting During Business Hours:: Please call the physician's office After Business Hours:: Please call [phone] and have the pony ride operator page the physician Pain Management/Treatment: Ibuprofen/Tylenol/Hydrocodone as needed. Hyoscyamine/AZO for bladder discomfort and/or spasm. Pain Scale Utilized to Educate Patient: 0-10 Pain Scale Wound/Incision Care: N/A Condition at time of discharge: Good Plan of Care Discharge Date 08/04/16 9:35pm Instructions/Education Provided Cystoscopy (DC) Lithotripsy (DC) Ureteral Stent Placement (DC) Prescriptions See Medication Section Functional Status Query Response Date Recorded Mobility Status Ambulatory August 04, 2016 3:42pm Assistive Devices None August 04, 2016 3:42pm Activity Limitations None August 04, 2016 3:42pm Feeding Ability Independent August 04, 2016 3:42pm Toileting Ability Independent August 04, 2016 3:42pm Grooming Ability Independent August 04, 2016 3:42pm Dressing Ability Independent August 04, 2016 3:42pm Driving Ability Independent August 04, 2016 3:42pm Housework Ability Independent August 04, 2016 3:42pm Meal Preparation Ability Independent August 04, 2016 3:42pm Stair Climbing Ability Independent August 04, 2016 3:42pm Ability to complete ADL's impeded by No change August 04, 2016 3:42pm Cognitive/Perceptual Impairments Impaired vision August 04, 2016 3:42pm Visual Assistive Devices Glasses August 04, 2016 3:42pm Preferred Method of Learning Video/TV August 04, 2016 3:42pm Allergies, Adverse Reactions, Alerts Allergen Type Severity Reaction Status Last Updated Sulfa (Sulfonamide Antibiotics) Allergy Intermediate HIVES Active 08/04/16 Iodine Allergy Intermediate RASH Active 08/04/16 Immunizations Query Response on File Recorded Date/Time Hx Influenza Vaccination No 08/04/16 2:14pm Hx Pneumococcal Vaccination No 08/04/16 2:14pm Hx Influenza Vaccination No 08/04/16 2:14pm Vital Signs Acute Vital Signs Vital Response Date/Time Temperature (Fahrenheit) 97.0 deg F (96.8 - 99.1) 08/04/2016 7:33pm Temperature (Calculated Celsius) 36.21302 degrees C (36.0 - 37.3) 08/04/2016 7:33pm Temperature Source Temporal 08/04/2016 7:22pm Pulse Rate (adult) 86 bpm (60 - 100) 08/04/2016 8:40pm Respiratory Rate 16 breaths/min (10 - 20) 08/04/2016 8:40pm O2 Sat by Pulse Oximetry 95 % (90 - 100) 08/04/2016 8:40pm Oxygen Delivery Method Room Air 08/04/2016 8:40pm Blood Pressure 127/67 mm Hg 08/04/2016 8:40pm Blood Pressure Source Automatic Cuff 08/04/2016 8:40pm Height (Feet) 5 feet 08/04/2016 2:11pm Height (Inches) 7.00 inches 08/04/2016 2:11pm Weight (Kilograms) 117.600 kg 08/04/2016 2:11pm Body Mass Index (BMI) 40.6 08/04/2016 2:11pm Results Name: MONCHO NEWTON Unit #: [id number] : 1990 Sex: F Admit Date: 08/04/16 Loc / Svc: SRG Discharge Date: 08/04/16 DIAGNOSTIC IMAGING REPORT [facility] [id number] Indication: ITS.REASON: LT RETROGRADE / STENT INSERTION PROCEDURE: RF RETROGRADE PYELOGRAM LEFT: Encounter: Initial Comparison: None available Findings: 16 working C-arm views were obtained in surgery. There is opacification of the left collecting system via cystoscope. There is mild hydronephrosis with no evidence of obvious filling defects or strictures. Final films show placement of ureteral stent. Total fluoroscopy time: 257 seconds Impression: Working views during left retrograde pyelogram with ureteral stent placement. . Procedures Procedure Status Date Provider(s) Cystoscopy with left ureteroscopic laser lithotripsy Completed 08/04/16 HOWIE CALDERÓN MD Encounters Encounter Location Arrival/Admit Date Discharge/Depart Date Attending Provider Registered [facility] Day Care [facility] 08/04/16 1:53pm HOWIE CALDERÓN MD
--- OUTSIDE RECORDS SUMMARY | 2016-08-05 11:49 | XMS REPORT | Summary of Care ---
Author Author Howie Berkowitz M.D. Organization Unknown Address [address] [place] [address] [place] [address] Phone Unavailable Care Team Providers Care Material Dispatcher Name Role Phone Howie Berkowitz M.D. Unavailable Unavailable Davin Dixon M.D. Unavailable [...] (urinary tract infection) (599.0, N39.0) Status: Active Kidney stone on left side (592.0, N20.0) Status: Active Left ureteral stone (592.1, N20.1) Status: Active Medications Name Dates Details Multi-Vitamins Oral Tablet TAKE 1 TABLET DAILY. Davin Dixon M.D. * Start 12-Apr-2015 Active ClonazePAM 0.5 MG Oral Tablet TAKE 1 TABLET TWICE DAILY. * Quantity: 60 Refills: 0 Davin Dixon M.D. * Start 12-Apr-2015 Active Venlafaxine HCl - 75 MG Oral Tablet TAKE 1 TABLET TWICE DAILY. * Quantity: 60 Refills: 0 Davin Dixon M.D. * Start 29-Jun-2016 Active TraZODone HCl - 100 MG Oral Tablet TAKE 1/2 TO 1 TABLET AT BEDTIME. * Refills: 0 Davin Dixon M.D. Start 29-Jun-2016 Active HydrOXYzine HCl - 50 MG Oral Tablet Take 1 tablet three times a day as needed for anxiety. * Refills: 0 Davin Dixon M.D. Start 29-Jun-2016 Active Ondansetron HCl - 4 MG/2ML Injection Solution 8 mg Zofran IV x 1 * Quantity: 2 Refills: 0 Davin Dixon M.D. Start 03-Aug-2016 Active 2 ML Vial Ketorolac Tromethamine 10 MG Oral Tablet Take 1 po q 6 hr PRN * Quantity: 30 Refills: 0 Davin Dixon M.D. * Start 03-Aug-2016 Active LevoFLOXacin 500 MG Oral Tablet TAKE 1 TABLET DAILY DIRECTED. * Quantity: 6 Refills: 0 Davin Dixon M.D. Start 03-Aug-2016 Active AZO Urinary Pain Relief 97.5 MG Oral Tablet * Refills: 0 Howie Berkowitz M.D. Start 04-Aug-2016 Active Allergies and Adverse Reactions Name Dates [...] smoker Vital Signs Date Test Result Details 04-Aug-2016 13:02 BP Systolic 113 mm[Hg] Status: Comments: Location: ; Position: BP Diastolic 75 mm[Hg] Status: Comments: Location: ; Position: Heart Rate 119 /min Status: Comments: Location: ; Height 67 in Status: Weight 255 lb Status: Body Mass Index Calculated 39.94 kg/m2 Status: Body Surface Area Calculated 2.24 m2 Status: 03-Aug-2016 11:09 BP Systolic 110 mm[Hg] Status: Comments: Location: ; Position: BP Diastolic 80 mm[Hg] Status: Comments: Location: ; Position: Temperature 37.1 c Status: Comments: Method: Heart Rate 115 /min Status: Comments: Location: [...] Negative Range: Negative Comments: Internal Control: Acceptable----- 11:58 CBC w/ Auto Diff 7150 Comments: Manual differential indicated. WBC 15.8 K/uL (Above high threshold) Range: 4.5-11.0 RBC 4.78 mil/uL Range: 3.60-5.00 HGB 13.9 g/dL Range: 12.0-16.0 HCT 41.1 % Range: 36.0-48.0 MCV 86.0 fL Range: 80.0-99.0 MCH 29.0 pg Range: 27.3-32.5 MCHC 33.8 % Range: 32.0-36.0 RDW 15.3 % (Above high threshold) Range: 11.6-14.8 PLATELETS 310 K/uL Range: 150-400 MPV 7.3 fL Range: 6.0-11.0 11:58 Urinalysis, Reflex to Microscopic or Culture PRN 8005 pH 8.5 (Abnormal) Range: 5.0-7.5 SP GRAVITY 1.015 Range: 1.010-1.030 APPEARANCE CLEAR Range: Clear COLOR ORANGE (Abnormal) Range: Straw-Yellow PROTEIN 30 mg/dL (Abnormal) Range: Negative-Trace GLUCOSE NEGATIVE mg/dL Range: Negative KETONE TRACE mg/dL (Abnormal) Range: Negative BILIRUB NEGATIVE Range: Negative BLOOD NEGATIVE Range: Negative UROBIL 1.0 EU/dL Range: 0.2-1.0 NITRITE POSITIVE (Abnormal) Range: Negative Comments: Specimen referred to Reference Lab for Culture----- LEUK TRACE (Abnormal) Range: Negative 11:58 Urine Microscopic UMIC WBC 3-5 /HPF Range: 0-5 RBC 0-2 /HPF Range: 0-2 MUCUS 1+ /LPF Range: Negative-2+ BACTERIA Trace /HPF Range: Negative-Trace EPITH 3-5 /HPF Range: 0-10 U TRANSEPI 0-2 /HPF Range: 0-2 12:11 Manual Differential 7400 SEGS 82 % (Above high threshold) Range: 37-80 BANDS 1 % Range: 0-7 LYMPH 11 % (Below low threshold) Range: 13-50 MONO 6 % Range: 0-12 EOSIN 0 % Range: 0-7 BASO 0 % Range: 0-3 ALAN LYMPH 0 % Range: 0-0 META 0 % Range: 0-0 MYELO 0 % Range: 0-0 PRO 0 % Range: 0-0 BLAST 0 % Range: 0-0 NUC RBC 0 /100 WBC Range: 0-0 SMUDGE 0 /100 WBC PLATELET Adequate Range: Adequate 12:30 Comprehensive Metabolic Panel 1212 SODIUM 138 mmol/L Range: 133-144 POTASSIUM 3.7 mmol/L Range: 3.5-5.1 CHLORIDE 102 mmol/L Range: 98-110 CARBON DIOXIDE 28.5 mmol/L Range: 23.0-33.0 ANION GAP 8 mmol/L Range: 6-16 BUN 8 mg/dL Range: 7-18 CREATININE, SERUM 0.94 mg/dL Range: 0.55-1.02 BUN:CREATININE RATIO 9 EST GFR, >60 ml/min Range: >60 EST GFR, NON-AFR MOLDOVAN >60 ml/min Range: >60 Comments: EST GFR is reported in ml/min per 1.73 m2 of body surface area. ----- GLUCOSE 113 mg/dL (Above high threshold) Range: 70-100 ALK PHOSPHATASE 82 U/L Range: 46-116 TOTAL BILIRUBIN 0.70 mg/dL Range: 0.20-1.00 AST 15 U/L Range: 8-35 ALT 22 U/L Range: 14-59 ALBUMIN 4.0 g/dL Range: 3.4-5.0 TOTAL PROTEIN 8.1 g/dL Range: 6.4-8.2 A/G RATIO 1.0 units Range: 1.0-1.8 CALCIUM 9.0 mg/dL Range: 8.5-10.1 12:42 XRay ABD Acute (Flat, Upright & PA Chest) Comments: Exam Date: 2016 11:58Dictation Date: 08/03/2016 12:42 X ACUTE ABD SERIES 15:53 CT AB/ PEL WITH IV AND ORAL CONTRAST Comments: Exam Date: 08/03/2016 14:43Dictation Date: 08/03/2016 15:53 XC AB/PEL 45 MIN PREP Plan of Care Name Dates Details Planned Observations Planned Goals not documented Planned Encounters Appointment; Provider: Howie Berkowitz M.D. On 04-Aug-2016 16:30 Instructions Name Dates Details Instructions not documented Encounters Appointment; Davin Dixon M.D. Encounter Diagnosis: Problem not documented On 03-Aug-2016 11:15 Appointment; Davin Vance M.D. Encounter Diagnosis: Problem not documented On 14-Jul-2016 15:30 Appointment; Davin Dixon M.D. Encounter Diagnosis: Problem not documented On 29-Jun-2016 16:00 Appointment; Davin Dixon M.D. Encounter Diagnosis: Problem not documented On 11-Nov-2015 15:15 Appointment; Davin Dixon M.D. Encounter Diagnosis: Problem not documented On 07-Aug-2015 15:15 Appointment; Charles Moreno M.D.|CARMEN Trejo|Lorraine,CARMEN, Encounter Diagnosis: Problem not documented On 02-Aug-2015 [...]
--- OUTSIDE RECORDS SUMMARY | 2016-08-05 11:50 | XMS REPORT ---
Author Author [facility] Organization Unknown Address Unknown Phone Unavailable Care Team Providers Care Cvicu Nurse Name Role Phone MD FRANKIE, [facility] [phone] Reason For Visit Chief Complaint PAINFUL URINATION, [...] PM* CULTURE URINE (Preliminary Result) Specimen Number: [id number] Sample Collection Date/Time: 06/23/2015 1:30 PM Specimen [...] 11: 26 AM * Completed Procedure Code: 28837 Procedure Name: not valued, on 01/14/2015 12: [...]
--- OUTSIDE RECORDS SUMMARY | 2016-08-05 11:52 | XMS REPORT | Summary of Care ---
Author Author Howie Berkowitz M.D. Organization Unknown Address [address] [place] [address] [place] [address] Phone Unavailable Care Team Providers Care Straightener Gun Parts Name Role Phone Howie Berkowitz M.D. Unavailable [...] on left side (592.0, N20.0) Status: Active Renal colic (788.0, N23) Status: Active Left ureteral stone (592.1, N20.1) Status: Active Ureteral obstruction, left (593.4, N13.5) Status: Active Hematuria (599.70, R31.9) Status: Active Hydronephrosis (591, N13.30) Status: Active Medications Name Dates Details Multi-Vitamins [...] Quantity: 30 Refills: 0 Davin Dixon M.D. Start 03-Aug-2016 Active LevoFLOXacin 500 MG Oral [...] >60 ml/min Range: >60 EST GFR, NON-AFR UKRAINIAN >60 ml/min Range: >60 Comments: EST GFR [...] Dates Details Instructions not documented Encounters Appointment; Howie Berkowitz M.D. Encounter Diagnosis: Problem not documented On 04-Aug-2016 13:00 Appointment; Davin Dixon M.D. Encounter Diagnosis: Problem not documented On 03-Aug-2016 11:15 Appointment; Davin Vance M.D. Encounter Diagnosis: Problem not documented On 14-Jul-2016 15:30 Appointment; Davin Dixon M.D. Encounter Diagnosis: Problem not documented On 29-Jun-2016 16:00 Appointment; Davin Dixon M.D. Encounter Diagnosis: Problem not documented On 11-Nov-2015 15:15 Appointment; Davin Dixon M.D. Encounter Diagnosis: Problem not documented On 07-Aug-2015 15:15 Appointment; Charles Moreno M.D.|FMarciAMarciCMarciSMarci|Lorraine,CARMEN|Lorraine,CARMEN, Encounter Diagnosis: Problem not documented On 02-Aug-2015 [...]
--- OUTSIDE RECORDS SUMMARY | 2016-08-05 11:52 | XMS REPORT | Continuity of Care Document ---
Author Author [facility] Organization [facility] Address Unknown Phone Unavailable Support Name Relationship Address Phone CONSTANTINO CALDERÓN MD Caregiver [address] [place] [address] Unavailable CONSTANTINO CALDERÓN MD Caregiver [address] [place] [address] Unavailable BERNARDO DAVID Caregiver [address] [place] [address] Unavailable BRICE NEWTON Next Of Kin [id number] [place] [address] Insurance Providers Guarantor Moncho Newton Address [address] [place] [address] Email DENIED 16 Payer [facility] Policy Number [id number] Subscriber's Name Abiodun Newtonmalia Marlon Relationship 01 Spouse Group Number [id number] Advance Directives Directive Response Recorded Date/Time Ordered Resuscitation Status Full Code 08/04/16 2:13pm Resuscitation Documents on File No 08/04/16 2:13pm DPOA for Healthcare Only No 08/04/16 2:13pm Living Will No 08/04/16 2:13pm Problems No problem information available. Medications Current Home Medications Medication Dose Units Route Directions Days Qty Instructions Start Date Hydrocodone/Acetaminophen ([place] 5-325 Tablet) 5-325 Tablet 1 Tab Oral [...] as tolerated Follow Up Appointments: Follow-up in [facility] for stent removal on: Please have patient [...] physician's office After Business Hours:: Please call [phone] and have the bottoming machine operator page the physician Pain Management/Treatment: Ibuprofen/Tylenol/Hydrocodone as needed. Hyoscyamine/AZO for bladder discomfort and/or spasm. Pain Scale Utilized to Educate Patient: 0-10 Pain Scale Wound/Incision Care: N/A Condition at time of discharge: Good Plan of Care Discharge Date 08/04/16 9:35pm Disposition 01 DISCHARGED HOME, SELF-CARE Instructions/Education Provided Cystoscopy (DC) Lithotripsy (DC) Ureteral Stent Placement (DC) Prescriptions See Medication Section Care Plan and Goals See Discharge Instructions Section Functional Status Query Response Date Recorded [...] - 99.1) 08/04/2016 7:33pm Temperature (Calculated Celsius) 36.30209 degrees C (36.0 - 37.3) 08/04/2016 7:33pm [...] Mass Index (BMI) 40.6 08/04/2016 2:11pm Results No known relevant diagnostic tests, laboratory data and/or discharge summary. Procedures Procedure Status Date Provider(s) Cystoscopy with left ureteroscopic laser lithotripsy Completed 08/04/16 CONSTANTINO CALDERÓN MD Encounters Encounter Location Arrival/Admit Date Discharge/Depart Date Attending Provider Discharged Inpatient (obs) [facility] 08/04/16 1:53pm 08/04/16 9: 35pm CONSTANTINO CALDERÓN MD
--- OUTSIDE RECORDS SUMMARY | 2016-08-05 11:53 | XMS REPORT ---
Author Author [facility] Organization Unknown Address Unknown Phone Unavailable Care Team Providers Care Workday Consultant Name Role Phone MD FRANKIE, [facility] [phone] Reason For Visit Reason for Visit from [...] 9:15 AM * Address # 1 : [facility]: [facility] [place], [place]- [phone] or Procedures * Completed Arthroscopy of Knee, [...]
--- OUTSIDE RECORDS SUMMARY | 2016-08-05 11:53 | XMS REPORT ---
Author Author [facility] Organization Unknown Address Unknown Phone Unavailable Care Team Providers Care Editor School Photograph Name Role Phone MD FRANKIE, [facility] [phone] Reason For Visit Reason for Visit from [...] 9:15 AM * Address # 1 : [facility]: [facility] [place]- or Procedures * Completed Arthroscopy of [...]
--- OUTSIDE RECORDS SUMMARY | 2016-08-05 11:53 | XMS REPORT | Summary of Care ---
Author Author Howie Berkowitz M.D. Organization Unknown Address [address] [place] [address] [place] [address] Phone Unavailable Care Team Providers Care Machine Staker Name Role Phone Howie Berkowitz M.D. Unavailable [...] >60 ml/min Range: >60 EST GFR, NON-AFR NIUEAN >60 ml/min Range: >60 Comments: EST GFR [...]
--- OUTSIDE RECORDS SUMMARY | 2016-08-05 11:54 | XMS REPORT ---
Author Author GENERATED, SYSTEM Organization Unknown Address Unknown Phone Unavailable Care Team Providers Care Tire Builder Heavy Service Name Role Phone MD FRANKIE, [facility] [phone] Reason For Visit Chief Complaint N/V/D BACK [...]
--- OUTSIDE RECORDS SUMMARY | 2016-08-05 11:55 | XMS REPORT | Continuity of Care Document ---
Author Author [facility] Organization [facility] Address Unknown Phone Unavailable Allergies Active Description [...] Status Pt. Type Provider Facility Loc./Unit Complaint [id number] 11/12/2014 12:12:00 2014 15:34:00 DIS Emergency Ravi JEAN-BAPTISTE, Efrain [facility] W.MARNI [id number] 2013 07:32:00 2013 11:35:00 DIS Inpatient Kasey JEAN-BAPTISTE, Ronald [facility] W.5WH [id number] 08/01/2013 21:03:00 2013 21:54:00 DIS Emergency Kasey JEAN-BAPTISTE, [facility] W.2WOBED [id number] 04/20/2013 18:24:00 2013 20:38:00 DIS Emergency Kasey JEAN-BAPTISTE, [facility] W.2WOBED [id number] 04/10/2013 22:17:00 2013 01:05:00 DIS Emergency Kasey JEAN-BAPTISTE, [facility] W.2WOBED [id number] 02/28/2013 10:54:00 2012 13:31:00 DIS Emergency Dilma JEAN-BAPTISTE, [facility] W.EDN [id number] 03/31/2012 19:29:00 2012 23:07:00 DIS Emergency Ann Marie ASHLEY, [facility] W.EDS [id number] 11/18/2011 06:52:00 2011 14:00:00 DIS Inpatient Kasey JEAN-BAPTISTE, [facility] W.3WH
== END 2016-08-04 21:35 | disposition home or self-care (01) ==
LOC: SRG 13:53 → SCU 13:53 → UNDOADMOB 13:53 → SCU 21:35 → UNDODISOB 21:35 → EDSTATUS 08-05 11:44
PROVIDERS: ATTEND Specialist
DX: N13.2 Hydronephrosis with renal and ureteral calculous obstruction (principal); R31.29 Other microscopic hematuria; Z87.440 Personal history of urinary (tract) infections; K90.0 Celiac disease; E66.01 Morbid (severe) obesity due to excess calories; Z68.41 Body mass index [BMI] 40.0-44.9, adult; G43.019 Migraine without aura, intractable, without status migrainosus; F32.9 Major depressive disorder, single episode, unspecified; F41.9 Anxiety disorder, unspecified; F19.21 Other psychoactive substance dependence, in remission; Z79.899 Other long term (current) drug therapy
CPT/HCPCS: 52356; 74420; 82365; J1100; J1170; J1580; J1885; J1956; J2250; J2405; J2704; J3010; J7030; J7050; J7060; Q9967